=== PATIENT | female | born 1995 | race Caucasian/White ===

== ENCOUNTER 2018-05-06 19:55 | Observation (INO) | payer OTHER ==
[2018-05-06] MEDS ORDERED: NORMAL SALINE 1000 ML 1,000 ML IV ONE (20:06)
--- NOTE | 2018-05-06 20:10 | ER Document Report ---
ED Medical Screen (RME) - General Chief Complaint: Abdominal Pain Stated Complaint: ABDOMINAL PAIN Time Seen by Provider: 05/06/18 20:04 Notes: RAPID MEDICAL EVALUATION DISCLOSURE I have seen this patient as part of a Rapid Medical Evaluation and, if applicable, placed any initially appropriate orders. The patient will be seen and fully evaluated, including a full history and physical exam, by a provider ( in Main ED or Fast Track) when a room becomes available. 23-year-old female (states they all resulted in miscarriages within the first month) approximately 6 weeks gestation (per her report) here with complaints of right (greater than left) lower quadrant abdominal pain that started yesterday and has progressively worsened. She has had nausea but no vomiting diarrhea dysuria hematuria frequency vaginal bleeding/discharge. She has not taken anything for the symptoms. She has not yet had an ultrasound. No prior history of ovarian cysts. EXAM Moderately tachycardic, 120s (states she does not feel nervous or anxious, & that her HR is normally low) Mild diffuse TTP, right> left lower quadrant No peritoneal signs - Related Data Allergies/Adverse Reactions: No Known Allergies Allergy (Unverified 05/06/18 19:56) Past Medical History Renal/ Medical History: Denies: Hx Peritoneal Dialysis
[2018-05-06 20:27] LABS: ABSOLUTE EOSINOPHILS # (AUTO) 0.1 10^3/uL (0.0-0.6); ABSOLUTE LYMPHOCYTES (AUTO) 1.4 10^3/uL (0.5-4.7); ABSOLUTE MONOCYTES (AUTO) 0.7 10^3/uL (0.1-1.4); ABSOLUTE NEUT (AUTO) 5.8 10^3/uL (1.7-8.2); BASOPHILS % (AUTO) 0.2 % (0-2); EOSINOPHILS % (AUTO) 0.9 % (0-6); HEMATOCRIT 37.4 % (36.0-47.0); HEMOGLOBIN 13.2 g/dL (12.0-15.5); LYMPHOCYTES % (AUTO) 17.9 % (13-45); MEAN CORPUSCULAR HEMOGLOBIN 31.7 pg (27.0-33.4); MEAN CORPUSCULAR HGB CONC 35.3 g/dL (32.0-36.0); MEAN CORPUSCULAR VOLUME 90 fl (80-97); MONOCYTES % (AUTO) 8.3 % (3-13); PLATELET COUNT 302 10^3/uL (150-450); RED BLOOD COUNT 4.17 10^6/uL (3.72-5.28); RED CELL DISTRIBUTION WIDTH 12.9 % (11.5-14.0); SEGMENTED NEUTROPHILS % (AUTO) 72.7 % (42-78); TOTAL CELLS COUNTED % (AUTO) 100 %
[2018-05-06 20:41] LABS: ALANINE AMINOTRANSFERASE 18 U/L (9-52); ALBUMIN 4.8 g/dL (3.5-5.0); ALKALINE PHOSPHATASE 63 U/L (38-126); ANION GAP 15 (5-19); ASPARTATE AMINO TRANSFERASE 18 U/L (14-36); BILIRUBIN,DIRECT 0.3 mg/dL (0.0-0.4); BILIRUBIN,TOTAL 0.6 mg/dL (0.2-1.3); BLOOD UREA NITROGEN 13 mg/dL (7-20); CALCIUM 9.7 mg/dL (8.4-10.2); CARBON DIOXIDE 24 mmol/L (22-30); CHLORIDE 102 mmol/L (98-107); GLUCOSE 91 mg/dL (75-110); LIPASE 104.5 U/L (23-300); POTASSIUM 3.6 mmol/L (3.6-5.0); SODIUM 141.1 mmol/L (137-145); TOTAL PROTEIN 8.3 g/dL (6.3-8.2)
[2018-05-06 21:16] LABS: APPEARANCE,URINE SLIGHTLY-CLOUDY; BILIRUBIN,URINE NEGATIVE (NEGATIVE); COLOR,URINE YELLOW; GLUCOSE, URINE NEGATIVE (NEGATIVE); KETONES,URINE NEGATIVE (NEGATIVE); LEUKOCYTE ESTERASE,URINE TRACE (NEGATIVE); NITRITE,URINE NEGATIVE (NEGATIVE); PROTEIN,URINE NEGATIVE (NEGATIVE); URINE SPECIFIC GRAVITY 1.015
--- NOTE | 2018-05-06 22:02 | RADIOLOGY REPORT (SQ) ---
EXAM DESCRIPTION: U/S OB TRANSVAGINAL W/O DOP COMPLETED DATE/TIME: 05/06/2018 9:28 pm REASON FOR STUDY: RLQ pain, eval appendix ovarian cyst COMPARISON: None. TECHNIQUE: Transvaginal static and realtime grayscale images acquired of the pelvis. Additional zachery cted spectral and color Doppler images recorded. All images stored on PACs. bHC,000 CLINICAL DATES: 5 weeks 0 day LIMITATIONS: None. FINDINGS: No IUP identified. UTERUS: No masses. No anomalies. CERVICAL LENGTH: 2.2 cm Closed. RIGHT ADNEXA: Ovary not identified. No adnexal free fluid. LEFT ADNEXA: 4.2 x 3.6 x 2.9 cm complex cystic area in the left adnexa, minimal peripheral color flow on Doppler interrogation. FREE FLUID: None. OTHER: No other significant finding. IMPRESSION: 4.2 x 3.6 x 2.9 cm complex cystic area in the left adnexa, minimal peripheral color flow on Doppler interrogation. No IUP identified. Consider OB follow-up. Trimester of : First - 0 to 13 weeks. TECHNICAL DOCUMENTATION: JOB ID: [id number] [employer]- All Rights Reserved rev Reading location - IP/workstation name: [email or web address]
--- NOTE | 2018-05-06 22:33 | ER Document Report ---
ED General - General Chief Complaint: Abdominal Pain Stated Complaint: ABDOMINAL PAIN Time Seen by Provider: 05/06/18 20:04 Notes: Patient is a 23-year-old female at 6 weeks by LMP who presents with 2 days of bilateral adnexal tenderness worse towards the right which she states became much worse today. She describes it as a cramping, stabbing pain to her lower abdomen. Nothing improves or worsens this pain. She denies any associated vaginal bleeding, vaginal discharge, dysuria, fever or constitutional symptoms. She has never had an ectopic in the past. No history of PID, fertility treatment, smoking, or history of gonorrhea or chlamydia. She has not seen her general doctor regarding today's concerns. - Related Data Allergies/Adverse Reactions: No Known Allergies Allergy (Unverified 05/06/18 19:56) Past Medical History - General Information source: Patient - Social History Smoking Status: Never Smoker Frequency of alcohol use: None Drug Abuse: None Lives with: Spouse/Significant other Family History: Reviewed & Not Pertinent Patient has suicidal ideation: No Patient has homicidal ideation: No Renal/ Medical History: Denies: Hx Peritoneal Dialysis Review of Systems - Review of Systems Notes: Constitutional: Negative for fever. HENT: Negative for sore throat. Eyes: Negative for visual changes. Cardiovascular: Negative for chest pain. Respiratory: Negative for shortness of breath. Gastrointestinal: Positive for lower abdominal pain Genitourinary: Negative for dysuria. Musculoskeletal: Negative for back pain. Skin: Negative for rash. Neurological: Negative for headaches, weakness or numbness. 10 point ROS negative except as marked above and in HPI. Physical Exam - Vital signs Vitals: Temp Pulse Resp BP Pulse Ox 97.9 F 130 H 16 108/89 H 100 05/06/18 20:02 05/06/18 20:02 05/06/18 20:02 05/06/18 20:02 05/06/18 20:02 Interpretation: Tachycardic Notes: PHYSICAL EXAMINATION: GENERAL: Well-appearing, well-nourished and in no acute distress. HEAD: Atraumatic, normocephalic. EYES: Pupils equal round and reactive to light, extraocular movements intact, sclera anicteric, conjunctiva are normal. ENT: nares patent, oropharynx clear without exudates. Moist mucous membranes. NECK: Normal range of motion, supple without lymphadenopathy LUNGS: Breath sounds clear to auscultation bilaterally and equal. No wheezes rales or rhonchi. HEART: Regular rate and rhythm without murmurs ABDOMEN: Soft, bilateral adnexal and suprapubic tenderness more dominant towards the right adnexa, normoactive bowel sounds. No guarding, no rebound. No masses appreciated. EXTREMITIES: Normal range of motion, no pitting or edema. No cyanosis. NEUROLOGICAL: No focal neurological deficits. Moves all extremities spontaneously and on command. PSYCH: Moderately anxious SKIN: Warm, Dry, normal turgor, no rashes or lesions noted. Course - Re-evaluation Re-evalutation: 05/06/18 22:32 Patient presents with bilateral adnexal pain, worse toward the right than the left for the past 2 days much worse today. Initially the patient was tachycardic to 130 bpm which has improved with a heart rate of 97 on manual count. Her transvaginal ultrasound does show findings worrisome for possible left-sided adnexal although her pain is more toward the right. Quantitative beta-hCG is 3062 and I would anticipate an IUP at this time point. I have discussed with Dr. Magana the [employer] LOSS INSPECTOR semiconductor technician who will review the images and plans to then assess the patient. 05/07/[address] Magana has seen and assessed the patient, will take to the operating room for concerns of an ectopic - Vital Signs Vital signs: Temp Pulse Resp BP Pulse Ox 97.5 F 77 17 96/58 L 100 05/07/18 04:16 05/07/18 04:16 05/07/18 04:16 05/07/18 04:16 05/07/18 04:16 - Laboratory Result Diagrams: 05/06/18 20:17 05/06/18 20:17 Laboratory results interpreted by me: 05/06/18 05/06/18 20:17 20:19 Total Protein 8.3 H Beta HCG, Quant 3062.60 H Urine Urobilinogen 4.0 H Ur Leukocyte Esterase TRACE H - Diagnostic Test Radiology reviewed: Reports reviewed Discharge - Discharge Clinical Impression: Adnexal mass Ectopic Qualifiers: Location of ectopic : unspecified location Intrauterine status: without intrauterine Qualified Code(s): O00.90 - Unspecified ectopic without intrauterine Condition: Fair Disposition: ADMITTED OBSERVATION Admitting Provider: [facility] Admitted: OR
--- NOTE | 2018-05-06 22:40 | PDOC H&P ---
History of Present Illness Admission Date/PCP: SUNNY CESAR MD Patient complains of: RLQ pain, denies VB History of Present Illness: NICOLE HERNANDEZ is a 23 year old female at 5+0ega by LMP with somewhat regular menses presents with 2 day hisotry of worsening abdominal pain. Pt reports pain is all across lower abd and intermittently worsens on the left then the right (goes back and forth). Last po intake was 1330. She denies emesis. She knew she was . Denies h/o GC/CHlam. Denies smoking. Past Medical History LMP: 04/01/2018 Menses: regular Gynecological Infection: No Obstetrical History: none - (all SABs, reports never had documented IUP with pregnancies) Past Surgical History Past Surgical History: Reports: Other - [place] teeth Social History Information Source: Patient Lives with: Family Smoking Status: Never Smoker Frequency of Alcohol Use: None Hx Recreational Drug Use: No Drugs: None Hx Prescription Drug Abuse: No Family History Family History: None Parental Family History Reviewed: No Children Family History Reviewed: NA Sibling(s) Family History Reviewed.: NA Medication/Allergy Allergies/Adverse Reactions: No Known Allergies Allergy (Unverified 05/06/18 19:56) Review of Systems Constitutional: ABSENT: chills, fever(s), headache(s), weight gain, weight loss Gastrointestinal: PRESENT: abdominal pain, bloating. ABSENT: nausea, vomiting Neurological: ABSENT: abnormal gait, abnormal speech, confusion, dizziness, focal weakness, syncope Psychiatric: PRESENT: other - upset regarding dx. ABSENT: anxiety, depression, homidical ideation, suicidal ideation Physical Exam - Physical Exam Vital Signs: Temp Pulse Resp BP Pulse Ox 97.9 F 130 H 16 108/89 H 100 05/06/18 20:02 05/06/18 20:02 05/06/18 20:02 05/06/18 20:02 05/06/18 20:02 Intake & Output 05/05/18 05/06/18 05/07/18 06:59 06:59 06:59 Weight 70.8 kg General appearance: PRESENT: no acute distress, well-developed, well-nourished Head exam: PRESENT: atraumatic, normocephalic Respiratory exam: PRESENT: clear to auscultation gil, symmetrical. ABSENT: retraction, tachypnea Cardiovascular exam: PRESENT: RRR. ABSENT: diastolic murmur, rubs, systolic murmur GI/Abdominal exam: PRESENT: guarding, normal bowel sounds, rebound - rebound and guarding. rebound worse on left side even though pt reports pain is on right, soft, tenderness. ABSENT: distended, mass, organolmegaly Rectal exam: PRESENT: deferred Extremities exam: PRESENT: full ROM. ABSENT: calf tenderness, clubbing, pedal edema Musculoskeletal exam: PRESENT: ambulatory Neurological exam: PRESENT: alert, awake, oriented to person, oriented to place , oriented to time, oriented to situation, CN II-XII grossly intact. ABSENT: motor sensory deficit Psychiatric exam: PRESENT: appropriate affect, normal mood. ABSENT: homicidal ideation, suicidal ideation Skin exam: PRESENT: dry, intact, warm. ABSENT: cyanosis, rash Result Laboratory Results: 05/06/18 20:17 05/06/18 20:17 05/06/18 05/06/18 05/06/18 20:17 20:17 20:19 WBC 8.0 RBC 4.17 Hgb 13.2 Hct 37.4 MCV 90 MCH 31.7 MCHC 35.3 RDW 12.9 Plt Count 302 Seg Neutrophils % 72.7 Lymphocytes % 17.9 Monocytes % 8.3 Eosinophils % 0.9 Basophils % 0.2 Absolute Neutrophils 5.8 Absolute Lymphocytes 1.4 Absolute Monocytes 0.7 Absolute Eosinophils 0.1 Absolute Basophils 0.0 Sodium 141.1 Potassium 3.6 Chloride 102 Carbon Dioxide 24 Anion Gap 15 BUN 13 Creatinine 0.81 Est GFR ( Amer) > 60 Est GFR (Non-Af Amer) > 60 Glucose 91 Calcium 9.7 Total Bilirubin 0.6 AST 18 ALT 18 Alkaline Phosphatase 63 Total Protein 8.3 H Albumin 4.8 Lipase 104.5 Urine Color YELLOW Urine Appearance SLIGHTLY-CLOUDY Urine pH 7.0 Ur Specific [place] 1.015 Urine Protein NEGATIVE Urine Glucose (UA) NEGATIVE Urine Ketones NEGATIVE Urine Blood NEGATIVE Urine Nitrite NEGATIVE Ur Leukocyte Esterase TRACE H Urine WBC (Auto) 7 Urine RBC (Auto) 1 Impressions: Obstetrics Ultrasound 05/06/18 20:06 IMPRESSION: 4.2 x 3.6 x 2.9 cm complex cystic area in the left adnexa, minimal peripheral color flow on Doppler interrogation. No IUP identified. Consider OB follow-up. Trimester of : First - 0 to 13 weeks. Status: Image reviewed by me - imported from PACS and reviewed by myself as well Assessment & Plan - Diagnosis (1) Adnexal mass Is this a current diagnosis for this admission?: Yes Plan: Significant COncern for Ectopic based off labs, exam and imaging. Reviewed poss hydrosalpinx vs ectopic and that if hydrosalpinx or damaged tube needs removal. Pt is aware that this would leave her with only one tube. Pt aware that if mass is attached to ovary may need ovary removal if unable to maintain hemostasis. (2) Ectopic Qualifiers: Location of ectopic : unspecified location Is this a current diagnosis for this admission?: Yes Plan: Reviewed with pt imaging and labs and exam findings (complex left adnexal mass 4cm x 3.6cm x 2.9cm). [facility] [place] with no IUP identified with complex adnexal mass and significant abdominal pain. Reviewed with patient significant concern for ectopic with rebound and guarding and need for surgical intervention. Reviewed other options: Expectant management in hospital, Methotrexate, Surgery. Reviewed if early IUP that is not showing up on US or if heterotopic that surgery may interrupt intrauterine if present. Reviewed with pt that if MTX that may still need surgery for tubal rupture. Reviewed possible need for emergent surgery if ectopic ruptures while undergoing expectant management. The risks/benefits/alternatives were reviewed and patient desires to proceed with Operative L/S with removal of suspected ectopic and may need removal of tube even if appears hydrosalpinx. She understands the risks and all questions were answered. GC/Chlam ordered. - Time Time Spent with patient: 30 minutes Time Spent: 30 to 50 Minutes Critical Time spent with patient: Less than 15 minutes Medications reviewed and adjusted accordingly: Yes Anticipated discharge: Home Within: within 24 hours - Inpatient Certification Based on my medical assessment, after consideration of the patient's comorbidities, presenting symptoms, or acuity I expect that the services needed warrant INPATIENT care.: Yes I certify that my determination is in accordance with my understanding of Medicare's requirements for reasonable and necessary INPATIENT services [42 CFR 412.3e].: Yes Medical Necessity: Need for Pain Control, Need for Surgery Post Hospital Care: D/C [employer] Documentation - Plan Summary Plan Summary: TO operating room. Anticipate discharge tomorrow.
[2018-05-06] MEDS ORDERED: BUPIVACAINE HCL 0.25 % INJ/PF (2.5 MG/1 ML) 30 ML VIAL ONE (23:52)
[2018-05-07] MEDS ORDERED: PROPOFOL INJ 200 MG/20 ML VIAL IV ONE (00:17)
[2018-05-07] MEDS ORDERED: MIDAZOLAM 2 MG/2 ML INJ ONE (00:17)
[2018-05-07] MEDS ORDERED: ONDANSETRON HCL INJ/PF 4 MG/2 ML SDV ONE (00:17)
[2018-05-07] MEDS ORDERED: FENTANYL CITRATE INJ/PF 100 MCG/2 ML AMPUL ONE (00:17)
[2018-05-07] MEDS ORDERED: ACETAMINOPHEN 1,000 MG/100 ML RTUPB IV ONE (00:17)
[2018-05-07] MEDS ORDERED: DEXAMETHASONE SOD PHOSPHATE INJ 4 MG/1 ML VIAL ONE (00:17)
[2018-05-07] MEDS ORDERED: MORPHINE SULFATE 10 MG/ML INJ ONE (00:18)
[2018-05-07 00:23] LABS: CHLAM PCR NOT DETECTED (NOT DETECT); GON PCR NOT DETECTED (NOT DETECT)
[2018-05-07] MEDS ORDERED: MORPHINE SULFATE 10 MG/ML INJ IV PRN (01:12)
[2018-05-07] MEDS ORDERED: OXYCODONE-ACETAMINOPHEN 5-325 MG TABLET PO PRN ×4 (01:12→01:29)
[2018-05-07] MEDS ORDERED: MEPERIDINE HCL/PF INJ 25 MG/1 ML DISP.SYRIN IV PRN (01:12)
[2018-05-07] MEDS ORDERED: DIPHENHYDRAMINE HCL 50 MG/ML VIAL IV PRN (01:12)
[2018-05-07] MEDS ORDERED: FENTANYL CITRATE INJ/PF 100 MCG/2 ML AMPUL IV PRN ×3 (01:12)
[2018-05-07] MEDS ORDERED: PROMETHAZINE HCL INJ 25 MG/1 ML VIAL IV PRN ×3 (01:12→01:28)
[2018-05-07] MEDS ORDERED: DEXTROSE 5%-LACTATED RINGERS 1,000 ML IV PRN (01:28)
[2018-05-07] MEDS ORDERED: HYDROMORPHONE HCL INJ/PF 2 MG/ML AMPULE IM PRN (01:28)
[2018-05-07] MEDS ORDERED: NORMAL SALINE 1000 ML 1,000 ML IV PRN (01:28)
--- NOTE | 2018-05-07 01:41 | Brief Operative Note ---
BRIEF OPERATIVE REPORT DATE OF SURGERY: 05/07/18 TIME OF SURGERY: 01:10 PREOPERATIVE DIAGNOSIS: Adnexal Mass, Early possible ectopic POSTOPERATIVE DIAGNOSIS: Left complex cyst, no e/o ectopic SURGEON: ANGELIQUE HER FINDINGS: cystic structure on left ovary but overall simple in appearance ( appears to be 2 simple cysts combined). normal appearing uterus, normal bilateral tubes, normal right ovary. IVF 700ml, UOP 150ml COMPLICATIONS: none ESTIMATED BLOOD LOSS: less than 5 ml TISSUE REMOVED OR ALTERED: None TECHNICAL PROCEDURE: Diagnostic Laparoscopy
--- NOTE | 2018-05-07 01:50 | Operative Report ---
Operative Report DATE OF SURGERY: 05/07/18 PREOPERATIVE DIAGNOSIS: Adnexal Mass, Early possible ectopic POSTOPERATIVE DIAGNOSIS: Left complex cyst, no e/o ectopic OPERATION: Diagnostic Laparoscopy SURGEON: ANGELIQUE HER ANESTHESIA: GA TISSUE REMOVED OR ALTERED: None COMPLICATIONS: None ESTIMATED BLOOD LOSS: less than 5 ml INTRAOPERATIVE FINDINGS: cystic structure on left ovary but overall simple in appearance (appears to be 2 simple cysts combined). normal appearing uterus, normal bilateral tubes (normal caliber, no evidence of blunting of fimbriae), normal right ovary. Ovarian cyst was left intact since unable to identify CL cyst. was informed of this postoperatively. IVF 700ml, UOP 150ml PROCEDURE: Anesthesiologist: Raheem Frederick MD, Mode Gracia CRNA IV fluids: [700ml] Urine output: [150ml] Indications: [23yo at 5+0ega presents with 2 day history of worsening abdominal pain diffuse lower abdomen. On exam she has guarding and rebound. BHCG was 3,062 and US revealed complex left adnexal mass. Reviewed options with patient and partner and concern for ectopic based on presentation. Reviewed with patient and that could have IUP that may not be able to visualize yet. However, at current BHCG should be able to see something in the uterus. Reviewed options: expectant, MTX, surgery. The risks/ benefits/alternatives were reviewed and she desires to proceed with Laparoscopy. She is aware that of surgical risks if there is an intrauterine that has not been identified yet. ] Procedure: The patient was taken to the operating room where general anesthesia was obtained without difficulty. She was then placed in dorsal supine lithotomy position and prepped and draped in the normal sterile fashion. A sponge stick was placed into the vagina for uterine manipulation. Attention was then turned to the patient's abdomen where a 5 mm infraumbilical skin incision was then made. The Optiview trocar with 0 laparoscope was then advanced without difficulty under direct visualization with the Optiview trocar. This was performed while tenting the abdominal wall and these will fashion. Intraperitoneal placement was confirmed by the direct visualization. Pneumoperitoneum was then obtained with approximately 4 L carbon dioxide gas. Survey of the patient's abdomen and pelvis revealed findings as noted above. A second skin incision was then made approximately 3 cm superior 4 cm medial to the anterior superior iliac spine on the left. This incision was made under direct visualization with the laparoscope. The trochar was then advanced under direct visualization of the laparoscope. Pelvis and abdomen was then thoroughly inspected and no evidence of ectopic but noted multicystic structure in Left ovary (cysts appeared simple). The additional trochar on the patient's left were than removed under direct visualization. The 5 mm trocar was then removed after abdominal insufflation was removed. The skin at all trocar sites were closed with 3-0 Monocryl in a subcuticular fashion with overlying Dermabond. No antibiotics were indicated for this procedure. After completion of skin closure of the trocar sites attention was then turned to the vagina where the sponge stick uterine manipulator was removed. Sponge lap needle and instrument counts were correct 3. The patient tolerated the procedure well and was taken to the recovery area awake and in stable condition.
[2018-05-07 06:36] LABS: HEMATOCRIT 34.3 % (36.0-47.0); HEMOGLOBIN 12.1 g/dL (12.0-15.5); MEAN CORPUSCULAR HEMOGLOBIN 31.4 pg (27.0-33.4); MEAN CORPUSCULAR HGB CONC 35.3 g/dL (32.0-36.0); MEAN CORPUSCULAR VOLUME 89 fl (80-97); PLATELET COUNT 253 10^3/uL (150-450); RED BLOOD COUNT 3.85 10^6/uL (3.72-5.28); RED CELL DISTRIBUTION WIDTH 12.9 % (11.5-14.0); WHITE BLOOD COUNT 6.6 10^3/uL (4.0-10.5)
[2018-05-07] MEDS ORDERED: DOCUSATE SODIUM 100 MG CAPSULE PO SCH (10:00)
[2018-05-07] MEDS ORDERED: SUCCINYLCHOLINE CHLORIDE INJ 200 MG/10 ML VIAL ONE (11:00)
--- NOTE | 2018-05-07 11:00 | DISCHARGE SUMMARY E ---
Discharge Summary NAME: NICOLE HERNANDEZ : 1995 AGE: 23Y ADMITTED: 05/07/2018 DISCHARGED: 05/07/2018 ADMISSION DIAGNOSIS: Adnexal mass with beta hCG of 3000 with no intrauterine , suspicious for ectopic. DISCHARGE DIAGNOSIS: Left ovarian ectopic . HOSPITAL COURSE: The patient was seen and evaluated in the Emergency Room. She is a 4, para 0-0-3-0, at unknown gestational age, with a history of recurrent loss, so has had a beta hCG of 3000 in the Emergency Room and abdominal pain on her right side. With ultrasound imaging findings that are suspicious for adnexal ectopic . The patient was taken to the operating room by Dr. Her who the previous findings. Please see her dictated operative report. No intervention was done at that time although. Other than visualizing the left ovarian follicular/adnexal mass or cysts, but could be having ectopic. Prior to taking her to the OR, desire that Dr. Her does not intervene on her ovary or fallopian tubes because she wants to retain her ovaries and she just wanted to make sure there was nothing from an urgent intervention that is needed. So the patient was taken for a diagnostic laparoscopy. The ovaries remained in place. Both fallopian tubes appeared to be normal. This was compared to the report of Dr. Her. It was a pristine abdomen. No bleeding in the abdomen. The patient came back to the recovery room and was evaluated in the morning with a repeat beta hCG that dropped from 3000 to 2800 consistent with a left ovarian ectopic . The patient still desired to not have intervention surgically with removal of the ovary or cystectomy of the ovary. The patient desires to have medical intervention with methotrexate. She was counseled extensively to present to the emergency room immediately if she has an acute onset of abdominal pain that is excruciatingly painful, unresponsive to the narcotics. The patient was prohibited from lifting more than 5-10 pounds and instrumented not to do any strenuous activity. The patient will be given methotrexate 93 IM 93 mg x1 prior to discharge with appropriate follow up on day 4 and day 7 at the office with Dr. Her. Dr. Her does a two dose regimen, so she will get another methotrexate IM on day 4 with a repeat beta hCG at that time and hoping for a 15% drop between day 4 and day 7 in the beta hCG levels. The patient understood completely that this medication is a chemotherapeutic regimen and she needs to have close follow up and close intervention, and she was also instrumented not to take any vitamins, precautions, acute onset of abdominal pain, heavy vaginal bleeding. Patient and in the room were both counseled extensively on when to present to the emergency room. The patient is currently hemodynamically stable for discharge. Vital signs are normotensive, not tachycardic, afebrile. Abdomen is soft, not an acute abdomen. The patient will be discharged with Dr. Her. Dr. Her was in the patient's room with me about discussion of discharging with methotrexate being given today and with appropriate follow up of day 4 and day 7. DICTATING PHYSICIAN: Gisela Santana MD [id number] PHY#: [id number] ID: [id number] JOB#: [id number] ACCT: [id number] cc:ANGELIQUE HRE M.D. Gisela Santana >
[2018-05-07] MEDS ORDERED: METHOTREXATE SODIUM INJ/PF 50 MG/2 ML IM PRN (12:03)
[2018-05-07 13:57] VITALS: BP 98/53
== END 2018-05-07 14:30 | disposition home or self-care (01) ==
LOC: ER 19:55 → EH 05-07 00:01 → 2N 05-07 02:07
PROVIDERS: ADMIT Student in an Organized Health Care Education/Training Program; ATTEND Student in an Organized Health Care Education/Training Program
PROC: 0WJJ4ZZ Inspection of Pelvic Cavity, Percutaneous Endoscopic Approach (ICD-10-PCS; principal; 2018-05-06)
DX: N83.292 Other ovarian cyst, left side (principal); O00.202 Left ovarian pregnancy without intrauterine pregnancy
CPT/HCPCS: 49320; 99285; 96360; 86900; 86901; 36415; 86850; 84702; 83690; 85025; 85027; 80053; 81001; 87491; 87591; 76817; G0378; J2250; J1100; J3010; J9260; J2270; J2550; J0330; J2405; J7030; J2704; J0131; 840

== ENCOUNTER 2018-05-09 13:39 | Emergency (ER) | payer OTHER ==
--- NOTE | 2018-05-09 14:09 | ER Document Report ---
ED Medical Screen (RME) - General Chief Complaint: Abdominal Pain Stated Complaint: LOW LEFT ABDOMINAL PAIN Time Seen by Provider: 05/09/18 14:03 Notes: RAPID MEDICAL EVALUATION DISCLOSURE I have seen this patient as part of a Rapid Medical Evaluation and, if applicable, placed any initially appropriate orders. The patient will be seen and fully evaluated, including a full history and physical exam, by a provider ( in Main ED or Fast Track) when a room becomes available. 23-year-old female recently diagnosed with ectopic here with complaints of left lower and suprapubic abdominal pain that started up this morning. She was taken to the OR this past Wednesday night however the patient reports that they found the ectopic was inside of the ovary instead of on the outside so she was given a dose of methotrexate instead. She has had some pain that is relieved with the oxycodone she has been prescribed however today the pain immensely intensified (with associated nausea) and this prompted her to come in to be evaluated. EXAM Exquisite left lower quadrant and suprapubic TTP No peritoneal signs TRAVEL OUTSIDE OF THE [place] IN LAST 30 DAYS: No - Related Data Allergies/Adverse Reactions: No Known Allergies Allergy (Verified 05/09/18 13:41) Past Medical History - Past Medical History Cardiac Medical History: Denies: Hx Congestive Heart Failure, Hx Heart Attack, Hx Hypertension Pulmonary Medical History: Denies: Hx Asthma, Hx Bronchitis, Hx COPD, Hx Pneumonia, Hx Tuberculosis Neurological Medical History: Denies: Hx Seizures Renal/ Medical History: Denies: Hx End Stage Renal Disease, Hx Kidney Stones, Hx Peritoneal Dialysis GI Medical History: Denies: Hx Cirrhosis, Hx Gastroesophageal Reflux Disease, Hx Ulcer Musculoskeltal Medical History: Denies Hx Arthritis, Denies Hx Multiple Sclerosis Psychiatric Medical History: Denies: Hx Bipolar Disorder, Hx Depression, Hx Schizophrenia Past Surgical History: Reports: Other - [place] teeth - Immunizations History of Influenza Vaccine for 08/2017 - 12/2017 Season: Yes Influenza Administration Date for 08/2017 - 12/2017 Season: 10/01/17 Physical Exam - Vital signs Vitals: Temp Pulse Resp BP Pulse Ox 98.9 F 102 H 16 116/59 L 98 05/09/18 13:56 05/09/18 13:56 05/09/18 13:56 05/09/18 13:56 05/09/18 13:56 Course - Vital Signs Vital signs: Temp Pulse Resp BP Pulse Ox 98.9 F 102 H 16 116/59 L 98 05/09/18 13:56 05/09/18 13:56 05/09/18 13:56 05/09/18 13:56 05/09/18 13:56 Doctor's Discharge - Discharge Referrals: SUNNY CESAR MD [Primary Care Provider] - Follow up as needed
[2018-05-09] MEDS ORDERED: OXYCODONE HCL IR 5 MG TABLET PO ONE (14:11)
[2018-05-09 14:35] LABS: ABSOLUTE EOSINOPHILS # (AUTO) 0.1 10^3/uL (0.0-0.6); ABSOLUTE LYMPHOCYTES (AUTO) 1.9 10^3/uL (0.5-4.7); ABSOLUTE MONOCYTES (AUTO) 0.3 10^3/uL (0.1-1.4); ABSOLUTE NEUT (AUTO) 4.7 10^3/uL (1.7-8.2); BASOPHILS % (AUTO) 0.3 % (0-2); EOSINOPHILS % (AUTO) 0.9 % (0-6); HEMATOCRIT 38.1 % (36.0-47.0); HEMOGLOBIN 13.2 g/dL (12.0-15.5); LYMPHOCYTES % (AUTO) 27.1 % (13-45); MEAN CORPUSCULAR HGB CONC 34.6 g/dL (32.0-36.0); MEAN CORPUSCULAR VOLUME 90 fl (80-97); MONOCYTES % (AUTO) 3.9 % (3-13); PLATELET COUNT 332 10^3/uL (150-450); RED BLOOD COUNT 4.25 10^6/uL (3.72-5.28); RED CELL DISTRIBUTION WIDTH 12.4 % (11.5-14.0); SEGMENTED NEUTROPHILS % (AUTO) 67.8 % (42-78); TOTAL CELLS COUNTED % (AUTO) 100 %
--- NOTE | 2018-05-09 15:45 | RADIOLOGY REPORT (SQ) ---
EXAM DESCRIPTION: U/S OB TRANSVAGINAL W/O DOP COMPLETED DATE/TIME: 05/09/2018 3:30 pm REASON FOR STUDY: ectopic, now severe LLQ pain; eval ectopic rupture COMPARISON: 05/06/2018 TECHNIQUE: Transvaginal static and realtime grayscale images acquired of the pelvis. Additional zachery cted spectral and color Doppler images recorded. All images stored [facility] PACs. [facility]. CLINICAL DATES: LMP 04/01/2018. 5 weeks 3 days. LIMITATIONS: None. FINDINGS: A small gestational sac is present within the endometrial canal. There is a yolk sac pres ent. The size of the gestational sac suggested gestation of 5 weeks 4 days. No pole is seen. No heart motion is present. UTERUS: No masses or anomalies. 8 x 6 x 4.9 cm. CERVICAL LENGTH: 2.5 cm. Closed. RIGHT ADNEXA: Ovary not seen. No adnexal free fluid. No adnexal masses. LEFT ADNEXA: 4.8 x 3.6 x 4.8 cm. 2 cystic areas are present. 1 measures 3.5 x 2.2 x 2.7 cm. The ot her measures 2.8 x 2.1 x 2.1 cm. No adnexal free fluid. No adnexal masses. FREE FLUID: None. OTHER: No other significant finding. IMPRESSION: There appears to be an early gestational sac of 5 weeks 4 days. Appear to be 2 cysts as sociated with the left ovary. Follow-up as clinically indicated. Trimester of : First - 0 to 13 weeks. TECHNICAL DOCUMENTATION: JOB ID: [id number] [employer]- All Rights Reserved rev-03/18 Reading location - IP/workstation name: [email or web address]
[2018-05-09] MEDS ORDERED: NORMAL SALINE 1000 ML 1,000 ML IV ONE (15:52)
[2018-05-09] MEDS ORDERED: KETOROLAC TROMETHAMINE INJ/PF 30 MG/1 ML SDV IV ONE (15:52)
[2018-05-09] MEDS ORDERED: NORMAL SALINE 1000 ML 1,000 ML IV PRN (15:52)
[2018-05-09] MEDS ORDERED: ONDANSETRON HCL INJ/PF 4 MG/2 ML SDV IV ONE (15:52)
[2018-05-09 15:55] LABS: ALANINE AMINOTRANSFERASE 19 U/L (9-52); ALBUMIN 4.4 g/dL (3.5-5.0); ALKALINE PHOSPHATASE 56 U/L (38-126); ANION GAP 15 (5-19); ASPARTATE AMINO TRANSFERASE 22 U/L (14-36); BILIRUBIN,DIRECT 0.3 mg/dL (0.0-0.4); BILIRUBIN,TOTAL 0.6 mg/dL (0.2-1.3); BLOOD UREA NITROGEN 12 mg/dL (7-20); CALCIUM 9.9 mg/dL (8.4-10.2); CARBON DIOXIDE 24 mmol/L (22-30); CHLORIDE 101 mmol/L (98-107); GLUCOSE 87 mg/dL (75-110); POTASSIUM 3.8 mmol/L (3.6-5.0); TOTAL PROTEIN 7.9 g/dL (6.3-8.2)
--- NOTE | 2018-05-09 15:56 | ER Document Report ---
ED GI/ - General Chief Complaint: Abdominal Pain Stated Complaint: LOW LEFT ABDOMINAL PAIN Time Seen by Provider: 05/09/18 14:03 Mode of Arrival: Ambulatory Information source: Patient Notes: Chief complaint: Pelvic pain History of complain:( obtained from----patient) 23 years old female who had ectopic a few days ago, had laparoscopic surgery as well as methotrexate treatment was given. She presents today with lower pelvic pain sharp in nature each time she moves is increased in intensity. Associated with nausea no vomiting. Denies any dysuria frequency urgency. Denies any vaginal discharge. Denies any fever chills or other constitutional symptoms Onset: As above Duration: Last 2 days Severity: Moderate to severe Quality: Sharp Context: Post surgery Exacerbating factor and relieving factors: As above REVIEW OF SYSTEMS: CONSTITUTIONAL : Denies fever, chills, or sweats. Denies recent illness. EENT: Denies eye, ear, throat, or mouth pain or symptoms. Denies nasal or sinus congestion or discharge. Denies throat, tongue, or mouth swelling or difficulty swallowing. CARDIOVASCULAR: Denies chest pain. Denies palpitations or racing or irregular heart beat. Denies ankle edema. RESPIRATORY: Denies cough, cold, or chest congestion. Denies shortness of breath, difficulty breathing, or wheezing. GASTROINTESTINAL: Denies distention. Denies nausea, vomiting, or diarrhea. Denies blood in vomitus, stools, or per rectum. Denies black, tarry stools. Denies constipation. GENITOURINARY: Denies difficulty urinating, painful urination, burning, frequency, blood in urine, or discharge. FEMALE GENITOURINARY: Denies vaginal bleeding, heavy or abnormal periods, irregular periods. Denies vaginal discharge or odor. MUSCULOSKELETAL: Denies back or neck pain or stiffness. Denies joint pain or swelling. SKIN: Denies rash, lesions or sores. HEMATOLOGIC : Denies easy bruising or bleeding. LYMPHATIC: Denies swollen, enlarged glands. NEUROLOGICAL: Denies confusion or altered mental status. Denies passing out or loss of consciousness. Denies dizziness or lightheadedness. Denies headache. Denies weakness or paralysis or loss of use of either side. Denies problems with gait or speech. Denies sensory loss, numbness, or tingling. Denies seizures. PSYCHIATRIC: Denies anxiety or stress. Denies depression, suicidal ideation, or homicidal ideation. ALL OTHER SYSTEMS REVIEWED AND NEGATIVE. PHYSICAL EXAMINATION: GENERAL: Well-appearing, well-nourished and in moderate acute distress. HEAD: Atraumatic, normocephalic. EYES: Pupils equal round and reactive to light, extraocular movements intact, conjunctiva are normal. ENT: Nares patent, oropharynx clear without exudates. Moist mucous membranes. NECK: Normal range of motion, supple without lymphadenopathy LUNGS: Breath sounds clear to auscultation bilaterally and equal. No wheezes rales or rhonchi. HEART: Regular rate and rhythm without murmurs ABDOMEN: Soft, postsurgical abdomen with tenderness diffusely over the lower abdomen. With laparoscopic scars appears normal.. No guarding, no rebound. No masses appreciated. Examination of genitals-deferred Musculoskeletal: Normal range of motion, no pitting or edema. No cyanosis. NEUROLOGICAL: Cranial nerves grossly intact. Normal speech, normal gait. Normal sensory, motor exams PSYCH: Normal mood, normal affect. SKIN: Warm, Dry, normal turgor, no rashes or lesions noted. Dictation was performed using [employer] voice recognition software TRAVEL OUTSIDE OF THE [place] IN LAST 30 DAYS: No - Related Data Allergies/Adverse Reactions: No Known Allergies Allergy (Verified 05/09/18 14:11) Past Medical History - Social History Smoking Status: Never Smoker Chew tobacco use (# tins/day): No Frequency of alcohol use: None Drug Abuse: None Family History: Reviewed & Not Pertinent Patient has suicidal ideation: No Patient has homicidal ideation: No - Past Medical History Cardiac Medical History: Denies: Hx Congestive Heart Failure, Hx Heart Attack, Hx Hypertension Pulmonary Medical History: Denies: Hx Asthma, Hx Bronchitis, Hx COPD, Hx Pneumonia, Hx Tuberculosis Neurological Medical History: Denies: Hx Seizures Renal/ Medical History: Denies: Hx End Stage Renal Disease, Hx Kidney Stones, Hx Peritoneal Dialysis GI Medical History: Denies: Hx Cirrhosis, Hx Gastroesophageal Reflux Disease, Hx Ulcer Musculoskeltal Medical History: Denies Hx Arthritis, Denies Hx Multiple Sclerosis Psychiatric Medical History: Denies: Hx Bipolar Disorder, Hx Depression, Hx Schizophrenia Past Surgical History: Reports: Other - [place] teeth Physical Exam - Vital signs Vitals: Temp Pulse Resp BP Pulse Ox 98.9 F 102 H 16 116/59 L 98 05/09/18 13:56 05/09/18 13:56 05/09/18 13:56 05/09/18 13:56 05/09/18 13:56 Course - Vital Signs Vital signs: Temp Pulse Resp BP Pulse Ox 98.9 F 102 H 16 116/59 L 98 05/09/18 13:56 05/09/18 13:56 05/09/18 13:56 05/09/18 13:56 05/09/18 13:56 - Laboratory Result Diagrams: 05/09/18 14:20 05/09/18 15:10 Laboratory results interpreted by me: 05/09/18 05/09/18 14:45 15:10 Beta HCG, Quant 6809.40 H Urine Nitrite POSITIVE H Urine Urobilinogen 4.0 H Ur Leukocyte Esterase LARGE H - Diagnostic Test Radiology reviewed: Reports reviewed - Ultrasound of the pelvis was reported by radiologist as gestational sac of 5 weeks duration. No pole Discharge - Discharge Clinical Impression: Ectopic without intrauterine Qualifiers: Location of ectopic : tubal Laterality: right Qualified Code(s): O00.101 - Right tubal without intrauterine UTI (urinary tract infection) Qualifiers: Urinary tract infection type: acute cystitis Hematuria presence: without hematuria Qualified Code(s): N30.00 - Acute cystitis without hematuria Condition: Good Instructions: Urinary Tract Infection ([facility]), Ectopic (Stable) ([facility]) Prescriptions: Nitrofurantoin Monohyd/M-Cryst [Nitrofurantoin Holmes-Mcr 100 mg] 100 mg PO QID # 30 capsule Ondansetron [Zofran Odt 4 mg Tablet] 1 - 2 tab PO Q4H PRN #15 tab.rapdis PRN Reason: For Nausea/Vomiting Referrals: SUNNY CESAR MD [Primary Care Provider] - Follow up as needed
[2018-05-09 16:11] LABS: APPEARANCE,URINE CLOUDY; BILIRUBIN,URINE NEGATIVE (NEGATIVE); COLOR,URINE YELLOW; GLUCOSE, URINE NEGATIVE (NEGATIVE); KETONES,URINE NEGATIVE (NEGATIVE); LEUKOCYTE ESTERASE,URINE LARGE (NEGATIVE); NITRITE,URINE POSITIVE (NEGATIVE); PROTEIN,URINE NEGATIVE (NEGATIVE); URINE SPECIFIC GRAVITY 1.018
[2018-05-09] MEDS ORDERED: ONDANSETRON 4 MG TAB.RAPDIS ONE (17:00)
[2018-05-09 18:18] VITALS: BP 95/50
== END 2018-05-09 18:21 | disposition home or self-care (01) ==
LOC: ER 13:39
DX: O00.101 Right tubal pregnancy without intrauterine pregnancy (principal); N30.00 Acute cystitis without hematuria; R10.32 Left lower quadrant pain; R10.2 Pelvic and perineal pain; R11.0 Nausea
CPT/HCPCS: 99284; 96361; 96374; 36415; 84702; 85025; 80053; 81001; 76817; S0119; J1885; J7030

== ENCOUNTER 2018-05-20 09:57 | Day surgery (SDC) | payer OTHER ==
[~2018-05-20 09:57] MED LIST: FENTANYL CITRATE INJ/PF 100 MCG/2 ML AMPUL ONE; LIDOCAINE 1%/EPINEPHRINE INJ 20 ML VIAL ONE; METHYLENE BLUE 50 MG/10 ML AMPULE ONE; MIDAZOLAM 2 MG/2 ML INJ ONE; PROPOFOL INJ 200 MG/20 ML VIAL IV ONE
[2018-05-20] MEDS ORDERED: METHYLERGONOVINE MALEATE INJ/PF 0.2 MG/1 ML AMPULE ONE (10:09)
[2018-05-20] MEDS ORDERED: DOXYCYCLINE HYCLATE 100 MG in DEXTROSE 5%-WATER 250 ML IV PRN (10:31)
[2018-05-20 10:52] LABS: HEMATOCRIT 37.9 % (36.0-47.0); MEAN CORPUSCULAR HEMOGLOBIN 30.9 pg (27.0-33.4); MEAN CORPUSCULAR HGB CONC 34.5 g/dL (32.0-36.0); MEAN CORPUSCULAR VOLUME 90 fl (80-97); PLATELET COUNT 321 10^3/uL (150-450); RED BLOOD COUNT 4.22 10^6/uL (3.72-5.28); RED CELL DISTRIBUTION WIDTH 12.6 % (11.5-14.0); WHITE BLOOD COUNT 4.5 10^3/uL (4.0-10.5)
[2018-05-20] MEDS ORDERED: ACETAMINOPHEN 0 MG/0 ML RTUPB IV ONE (11:01)
[2018-05-20] MEDS ORDERED: MEPERIDINE HCL/PF INJ 25 MG/1 ML DISP.SYRIN IV PRN (12:32)
[2018-05-20] MEDS ORDERED: DIPHENHYDRAMINE HCL 50 MG/ML VIAL IV PRN (12:32)
[2018-05-20] MEDS ORDERED: FENTANYL CITRATE INJ/PF 100 MCG/2 ML AMPUL IV PRN ×3 (12:32)
[2018-05-20] MEDS ORDERED: ONDANSETRON HCL INJ/PF 4 MG/2 ML SDV IV PRN ×2 (12:32→12:44)
[2018-05-20] MEDS ORDERED: PROMETHAZINE HCL INJ 25 MG/1 ML VIAL IV PRN ×2 (12:32)
[2018-05-20] MEDS ORDERED: OXYCODONE-ACETAMINOPHEN 5-325 MG TABLET PO PRN ×4 (12:32→12:44)
[2018-05-20] MEDS ORDERED: HYDROMORPHONE HCL INJ/PF 2 MG/ML AMPULE IV PRN (12:43)
[2018-05-20] MEDS ORDERED: IBUPROFEN 800 MG TABLET PO PRN (12:43)
[2018-05-20] MEDS ORDERED: RINGERS SOLUTION,LACTATED 1,000 ML IV PRN (12:55)
[2018-05-20 14:06] VITALS: BP 101/56
[2018-05-20 14:10] LABS: CHLAM PCR NOT DETECTED (NOT DETECT); GON PCR NOT DETECTED (NOT DETECT)
[2018-05-20] MEDS ORDERED: KETOROLAC TROMETHAMINE 60 MG/2 ML SDV ONE (14:36)
[2018-05-20] MEDS ORDERED: DEXAMETHASONE SOD PHOSPHATE INJ 4 MG/1 ML VIAL ONE (14:36)
--- NOTE | 2018-06-17 07:07 | Operative Report ---
Operative Report DATE OF SURGERY: 05/20/18 PREOPERATIVE DIAGNOSIS: Abnormal IUP, MAB possible blighted ovum POSTOPERATIVE DIAGNOSIS: KATELYN OPERATION: EUA, Paracervical Block, Suction Dilation and Curettage SURGEON: ANGELIQUE HER ANESTHESIA: LMAC TISSUE REMOVED OR ALTERED: POC COMPLICATIONS: None ESTIMATED BLOOD LOSS: 10ml INTRAOPERATIVE FINDINGS: 8wks size uterus, uterus sounded to 8cm, moderate products of conception noted PROCEDURE: Anesthesia: [Yuliet OVALLES, Carri Zazueta [employer]PERVIS[employer]] EBL: [10ml] IVF: [200ml] UOP: [void] Indications: [23yo with abnormal IUP abnormally rising BHCG suspect blighted ovum or missed . Reviewed risks/benefits/alternatives to procedure. She desires to proceed with Suction Dilation Currkarla.] Procedure: The patient was taken to the Operating Room where general anesthesia was obtained without difficulty. She was prepped and draped in the normal sterile fashion in the dorsal lithotomy position. Exam under anesthesia was performed and noted above. A speculum was placed in the vagina. The anterior cervix was grasped with a single-tooth tenaculum and the uterus sounded to [8cm ] after paracervical block was performed with 8 mL of 1% lidocaine with epinephrine. The cervix was noted to be closed at the beginning of the procedure. Sequential dilators were then used to dilate the cervix to accommodate the the 8 mm suction curet curved. The 8 mm curved suction curet was gently advanced in the usual fashion and good return of tissue. The suction device was then activated and the curet rotated to clear the uterus of the products of conception. A sharp curettage was then performed. The suction device was then gently reintroduced and activated and the curet rotated to clear the uterus of conception which was loosened with recent sharp curettage. The sharp curettage was then performed again until a gritty texture was noted and the cavity was felt to be empty of further tissue. At this time there was minimal bleeding noted from the cervix. All instruments were removed from the patient's cervix and vagina. Silver nitrate was applied to the tenaculum site for hemostasis. Sponge lap needle and instrument counts are correct 2. Doxycycline 100 mg IV was given perioperatively. The patient tolerated the procedure well and was taken to the recovery area awake and in stable condition. The patient was discharged home with pain medications.
== END 2018-05-20 14:00 | disposition home or self-care (01) ==
LOC: OROUT 09:57
PROVIDERS: ATTEND Student in an Organized Health Care Education/Training Program
DX: O02.1 Missed abortion (principal); O02.0 Blighted ovum and nonhydatidiform mole
CPT/HCPCS: 86900; 86901; 36415; 86850; 85027; 87491; 87591; 88305 ×2; 59820; J2250; J1100; J3490 ×2; J1885; J3010; J7060; J2704; 940; J0131; J2210; Q9968

== ENCOUNTER 2018-06-27 13:36 | Emergency (ER) | payer OTHER ==
--- NOTE | 2018-06-27 15:40 | ER Document Report ---
ED GI/ - General Chief Complaint: Vaginal Bleeding Stated Complaint: VAGINAL BLEEDING Time Seen by Provider: 06/27/18 15:28 Notes: 23-year-old female to emergency department complaining of heavy vaginal bleeding. Patient states that she had a recent heterotopic with one in the fallopian tube/ovary and another one in the uterus. Had a D&C done and in late May. Having significant amount of vaginal bleeding at this time. Mild abdominal cramping. TRAVEL OUTSIDE OF THE [place] IN LAST 30 DAYS: No - HPI Patient complains to provider of: Other - Heavy menstrual period. Large amount of vaginal bleeding. Timing/Duration: Gradual - Related Data Allergies/Adverse Reactions: No Known Allergies Allergy (Verified 06/27/18 13:37) Past Medical History - General Information source: Patient - Social History Smoking Status: Never Smoker Frequency of alcohol use: None Drug Abuse: None Lives with: Family Family History: Reviewed & Not Pertinent Patient has suicidal ideation: No Patient has homicidal ideation: No - Past Medical History Cardiac Medical History: Denies: Hx Congestive Heart Failure, Hx Coronary Artery Disease, Hx Heart Attack, Hx Hypertension Pulmonary Medical History: Denies: Hx Asthma, Hx Bronchitis, Hx COPD, Hx Pneumonia, Hx Tuberculosis Neurological Medical History: Denies: Hx Cerebrovascular Accident, Hx Seizures Renal/ Medical History: Denies: Hx End Stage Renal Disease, Hx Kidney Stones, Hx Peritoneal Dialysis GI Medical History: Denies: Hx Cirrhosis, Hx Gastroesophageal Reflux Disease, Hx Ulcer Musculoskeletal Medical History: Denies Hx Arthritis, Denies Hx Multiple Sclerosis Psychiatric Medical History: Denies: Hx Bipolar Disorder, Hx Depression, Hx Schizophrenia Past Surgical History: Reports: Other - [place] teeth - Immunizations Hx Diphtheria, Pertussis, Tetanus Vaccination: Yes Review of Systems - Review of Systems Notes: Constitutional: denies: Chills, Diaphoresis, Fever, Malaise, Weakness EENT: denies: Eye discharge, Blurred vision, Tearing, Double vision, Nose congestion, Nose discharge, Throat swelling, Mouth pain Cardiovascular: denies: Palpitations, Heart racing, Orthopnea, Dyspnea, Chest pain Respiratory: denies: Cough, Hurts to breathe, Wheezing, Shortness of breath Gastrointestinal: denies: Abdominal pain, Diarrhea, Nausea, Vomiting, Black stools, bright red blood in stool Genitourinary: denies: Burning, Dysuria, Discharge, Frequency, Flank pain, Hematuria complains of a large amount of vaginal bleeding. Some uterine cramps Musculoskeletal: denies: Joint pain, Joint swelling, Muscle pain, Muscle stiffness, back pain Hematologic/Lymphatic: denies: Anemia, Easy bleeding, Easy bruising, Blood clots Neurological/Psychological: denies: Confusion, Dementia, Depression, Loss of consciousness Skin: No lesions, no masses, no skin breakdown, no abscesses Physical Exam - Vital signs Vitals: Temp Pulse Resp BP Pulse Ox 98.5 F 98 18 104/72 99 06/27/18 14:02 06/27/18 14:02 06/27/18 14:02 06/27/18 14:02 06/27/18 14:02 Interpretation: Normal - General General appearance: Appears well, Alert - HEENT Head: Normocephalic, Atraumatic Eyes: Normal Pupils: PERRL - Respiratory Respiratory status: No respiratory distress Chest status: Nontender Breath sounds: Normal Chest palpation: Normal - Cardiovascular Rhythm: Regular Heart sounds: Normal auscultation Murmur: No - Abdominal Inspection: Normal Distension: No distension Bowel sounds: Normal Tenderness: Nontender Organomegaly: No organomegaly - Back Back: Normal, Nontender - Extremities General upper extremity: Normal inspection, Nontender, Normal color, Normal ROM , Normal temperature General lower extremity: Normal inspection, Nontender, Normal color, Normal ROM , Normal temperature, Normal weight bearing. No: Marta's sign - Neurological Neuro grossly intact: Yes Cognition: Normal Orientation: AAOx4 [place] Coma Scale Eye Opening: Spontaneous [place] Coma Scale Verbal: Oriented [place]el[place] Coma Scale Motor: Obeys Commands [place] Coma Scale Total: 15 Speech: Normal Motor strength normal: LUE, RUE, LLE, RLE Sensory: Normal - Psychological Associated symptoms: Normal affect, Normal mood - Skin Skin Temperature: Warm Skin Moisture: Dry Skin Color: Normal Course - Re-evaluation Re-evalutation: 06/27/18 18:02 Laboratory 06/27/18 06/27/18 16:29 16:29 WBC 5.7 RBC 4.40 Hgb 13.9 Hct 39.6 MCV 90 MCH 31.6 MCHC 35.1 RDW 12.7 Plt Count 320 Seg Neutrophils % 59.4 Lymphocytes % 30.8 Monocytes % 7.2 Eosinophils % 2.0 Basophils % 0.6 Absolute Neutrophils 3.4 Absolute Lymphocytes 1.7 Absolute Monocytes 0.4 Absolute Eosinophils 0.1 Absolute Basophils 0.0 Sodium 142.0 Potassium 4.1 Chloride 104 Carbon Dioxide 25 Anion Gap 13 BUN 14 Creatinine 0.83 Est GFR ( Amer) > 60 Est GFR (Non-Af Amer) > 60 Glucose 92 Calcium 9.7 Total Bilirubin 0.6 Direct Bilirubin 0.3 Neonat Total Bilirubin Not Reportable Neonat Direct Bilirubin Not Reportable Neonat Indirect Bili Not Reportable AST 24 ALT 24 Alkaline Phosphatase 64 Total Protein 8.0 Albumin 4.6 Beta HCG, Quant < 2.39 Total Beta HCG NEGATIVE Pelvis Ultrasound 06/27/18 15:37 IMPRESSION: Nonvisualized right ovary. Otherwise age-appropriate exam. Patient has completely normal exam as well as normal labs and normal ultrasound. Consulted with Dr. Rodriguez with [employer]. He will relay information to Dr. Her. At this time I will give patient warning signs with regards to dysfunctional uterine bleeding and DC at this time in stable condition. - Vital Signs Vital signs: Temp Pulse Resp BP Pulse Ox 98.5 F 98 18 104/72 99 06/27/18 14:02 06/27/18 14:02 06/27/18 14:02 06/27/18 14:02 06/27/18 14:02 - Laboratory Result Diagrams: 06/27/18 16:29 06/27/18 16:29 Discharge - Discharge Clinical Impression: Dysfunctional uterine bleeding Condition: Good Disposition: HOME, SELF-CARE Instructions: Dysfunctional Uterine Bleeding ([facility]) Referrals: ANGELIQUE HER MD [ACTIVE STAFF] - Follow up as needed
[2018-06-27 16:43] LABS: ABSOLUTE EOSINOPHILS # (AUTO) 0.1 10^3/uL (0.0-0.6); ABSOLUTE LYMPHOCYTES (AUTO) 1.7 10^3/uL (0.5-4.7); ABSOLUTE MONOCYTES (AUTO) 0.4 10^3/uL (0.1-1.4); ABSOLUTE NEUT (AUTO) 3.4 10^3/uL (1.7-8.2); BASOPHILS % (AUTO) 0.6 % (0-2); HEMATOCRIT 39.6 % (36.0-47.0); HEMOGLOBIN 13.9 g/dL (12.0-15.5); LYMPHOCYTES % (AUTO) 30.8 % (13-45); MEAN CORPUSCULAR HEMOGLOBIN 31.6 pg (27.0-33.4); MEAN CORPUSCULAR HGB CONC 35.1 g/dL (32.0-36.0); MEAN CORPUSCULAR VOLUME 90 fl (80-97); MONOCYTES % (AUTO) 7.2 % (3-13); PLATELET COUNT 320 10^3/uL (150-450); RED CELL DISTRIBUTION WIDTH 12.7 % (11.5-14.0); SEGMENTED NEUTROPHILS % (AUTO) 59.4 % (42-78); TOTAL CELLS COUNTED % (AUTO) 100 %; WHITE BLOOD COUNT 5.7 10^3/uL (4.0-10.5)
[2018-06-27 17:07] LABS: ALANINE AMINOTRANSFERASE 24 U/L (9-52); ALBUMIN 4.6 g/dL (3.5-5.0); ALKALINE PHOSPHATASE 64 U/L (38-126); ANION GAP 13 (5-19); ASPARTATE AMINO TRANSFERASE 24 U/L (14-36); BILIRUBIN,DIRECT 0.3 mg/dL (0.0-0.4); BILIRUBIN,TOTAL 0.6 mg/dL (0.2-1.3); BLOOD UREA NITROGEN 14 mg/dL (7-20); CALCIUM 9.7 mg/dL (8.4-10.2); CARBON DIOXIDE 25 mmol/L (22-30); CHLORIDE 104 mmol/L (98-107); GLUCOSE 92 mg/dL (75-110); POTASSIUM 4.1 mmol/L (3.6-5.0)
--- NOTE | 2018-06-27 17:51 | RADIOLOGY REPORT (SQ) ---
EXAM DESCRIPTION: U/S NON OB PEL W/DOPPLER COMPLETED DATE/TIME: 06/27/2018 5:31 pm REASON FOR STUDY: Heavy vaginal bleeding, recent ectopic COMPARISON: None. TECHNIQUE: Dynamic and static grayscale images acquired of the pelvis via transabdominal approach an d recorded on PACS. Additional selected color Doppler and spectral images recorded. LIMITATIONS: None. FINDINGS: UTERUS: Contour normal. No mass. ENDOMETRIAL STRIPE: No focal or generalized thickening. No masses. CERVIX: No nabothian cysts. RIGHT OVARY AND DOPPLER: Ovary not visualized. LEFT OVARY AND DOPPLER: Normal size. No worrisome masses. Normal arterial vascular flow without evide nce for torsion. FREE FLUID: Minimal cul-de-sac free fluid. OTHER: No other significant finding. MEASUREMENTS: UTERUS: 7.6 x 4.3 x 3.3 cm ENDOMETRIAL STRIPE: 4 mm RIGHT OVARY: Not visualized. LEFT OVARY: 4.1 x 2.5 x 1.9 sign IMPRESSION: Nonvisualized right ovary. Otherwise age-appropriate exam. TECHNICAL DOCUMENTATION: JOB ID: [id number] [id number] 2010 [employer]- All Rights Reserved Rev-03/18 Reading location - IP/workstation name: [email or web address]
[2018-06-27 18:26] VITALS: BP 109/73
== END 2018-06-27 18:23 | disposition home or self-care (01) ==
LOC: ER 13:36
DX: N93.8 Other specified abnormal uterine and vaginal bleeding (principal)
CPT/HCPCS: 36415; 76856; 80053; 84702; 85025; 93976; 99284

== ENCOUNTER 2018-08-13 22:48 | Emergency (ER) | payer OTHER ==
[2018-08-13 23:09] VITALS: BP 111/58
[2018-08-13] MEDS ORDERED: IBUPROFEN 600 MG TABLET PO ONE (23:47)
--- NOTE | 2018-08-13 23:48 | ER Document Report ---
ED Medical Screen (RME) - General Chief Complaint: Foot Pain Stated Complaint: LEFT FOOT PAIN Time Seen by Provider: 08/13/18 23:46 Mode of Arrival: Ambulatory Information source: Patient Notes: 23-year-old female presents to ED for complaint of left foot pain. She states she has been working almost every day for the last 2 weeks 8 hours and more a day standing on her feet working at the [employer]. She states she started having some discomfort in her left foot and now it is to the point that any movement with her left foot is extremely painful. She states it is very painful to walk. She states she has had no acute injury but she thinks she has a strep fresh fracture from all of the walking. She is limping on her left foot. Patient states she has had a history of miscarriage and ectopic at the same time. She states she had one in her uterus and one ectopic ended up with a D&C and a surgery for the ectopic . Patient denies any smoking or drugs but states she does drink maybe once a month. I have greeted and performed a rapid initial assessment of this patient. A comprehensive ED assessment and evaluation of the patient, analysis of test results and completion of medical decision making process will be conducted by an additional ED providers. TRAVEL OUTSIDE OF THE [place] IN LAST 30 DAYS: No - Related Data Allergies/Adverse Reactions: No Known Allergies Allergy (Verified 06/27/18 13:37) Past Medical History - Past Medical History Cardiac Medical History: Denies: Hx Congestive Heart Failure, Hx Coronary Artery Disease, Hx Heart Attack, Hx Hypertension Pulmonary Medical History: Denies: Hx Asthma, Hx Bronchitis, Hx COPD, Hx Pneumonia, Hx Tuberculosis Neurological Medical History: Denies: Hx Cerebrovascular Accident, Hx Seizures Renal/ Medical History: Denies: Hx End Stage Renal Disease, Hx Kidney Stones, Hx Peritoneal Dialysis GI Medical History: Denies: Hx Cirrhosis, Hx Gastroesophageal Reflux Disease, Hx Ulcer Musculoskeltal Medical History: Denies Hx Arthritis, Denies Hx Multiple Sclerosis Psychiatric Medical History: Denies: Hx Bipolar Disorder, Hx Depression, Hx Schizophrenia Past Surgical History: Reports: Other - [place] teeth - Immunizations Hx Diphtheria, Pertussis, Tetanus Vaccination: Yes History of Influenza Vaccine for 08/2017 - 12/2017 Season: Yes Influenza Administration Date for 08/2017 - 12/2017 Season: 10/01/17 Physical Exam - Vital signs Vitals: Temp Pulse Resp BP Pulse Ox 99.5 F 90 16 111/58 L 99 08/13/18 23:09 08/13/18 23:09 08/13/18 23:09 08/13/18 23:09 08/13/18 23:09 Course - Vital Signs Vital signs: Temp Pulse Resp BP Pulse Ox 99.5 F 90 16 111/58 L 99 08/13/18 23:09 08/13/18 23:09 08/13/18 23:09 08/13/18 23:09 08/13/18 23:09 Doctor's Discharge - Discharge Referrals: SUNNY CESAR MD [Primary Care Provider] - Follow up as needed
--- NOTE | 2018-08-14 00:11 | ER Document Report ---
HPI - HPI Pain Level: 4 Notes: Patient is an otherwise healthy 23-year-old female who presents with chief complaint of left foot pain. Patient reports there is pain over the dorsal surface of the foot near the fourth and fifth digits. Patient denies any specific injury. - REPRODUCTIVE Reproductive: DENIES: : Past Medical History - General Information source: Patient - Social History Smoking Status: Never Smoker Frequency of alcohol use: None Drug Abuse: None Family History: Reviewed & Not Pertinent - Medical History Medical History: Negative - Past Medical History Cardiac Medical History: Denies: Hx Congestive Heart Failure, Hx Coronary Artery Disease, Hx Heart Attack, Hx Hypertension Pulmonary Medical History: Denies: Hx Asthma, Hx Bronchitis, Hx COPD, Hx Pneumonia, Hx Tuberculosis Neurological Medical History: Denies: Hx Cerebrovascular Accident, Hx Seizures Renal/ Medical History: Denies: Hx End Stage Renal Disease, Hx Kidney Stones, Hx Peritoneal Dialysis GI Medical History: Denies: Hx Cirrhosis, Hx Gastroesophageal Reflux Disease, Hx Ulcer Musculoskeletal Medical History: Denies Hx Arthritis, Denies Hx Multiple Sclerosis Psychiatric Medical History: Denies: Hx Bipolar Disorder, Hx Depression, Hx Schizophrenia Past Surgical History: Reports: Hx Oral Surgery - Immunizations Hx Diphtheria, Pertussis, Tetanus Vaccination: Yes Vertical Provider Document - CONSTITUTIONAL Notes: PHYSICAL EXAMINATION: GENERAL: Well-appearing, well-nourished and in no acute distress. HEAD: Atraumatic, normocephalic. EYES: Pupils equal round extraocular movements intact, conjunctiva are normal. ENT: Nares patent NECK: Normal range of motion LUNGS: No respiratory distress Musculoskeletal: Normal range of motion, tenderness to palpation over left fourth and fifth metatarsals, no ecchymosis or edema noted. Cap refill less than 3 seconds normal motor and sensation distal to area of pain. NEUROLOGICAL: Normal speech, normal gait. PSYCH: Normal mood, normal affect. SKIN: Warm, Dry, normal turgor, no rashes or lesions noted. - INFECTION CONTROL TRAVEL OUTSIDE OF THE [place] IN LAST 30 DAYS: No Course - Re-evaluation Re-evalutation: 08/14/18 00:45 X-ray is negative for any acute fracture or dislocation. Assessment is unremarkable. Weston wrap will be applied for comfort. Patient will be instructed to take ibuprofen and ice the extremity. - Vital Signs Vital signs: Temp Pulse Resp BP Pulse Ox 99.5 F 90 16 111/58 L 99 08/13/18 23:09 08/13/18 23:09 08/13/18 23:09 08/13/18 23:09 08/13/18 23:09 Procedures - Immobilization LEFT FOOT Immobilizer type: Weston wrap Performed by: Provider, Provider assisted, RN, PCT, Other Discharge - Discharge Clinical Impression: Foot pain, left Condition: Stable Disposition: HOME, SELF-CARE Additional Instructions: Contusion Your pain is most likely the result of a contusion -- a crushing of the deep tissues. No injury to important structures was detected during the physician's exam. Contusions vary in the amount of pain they cause, and in the length of time required for healing. Typically, the area will become bruised, and will remain painful to touch for two or three weeks. However, most patients are back to working and playing within a few days. After the initial period of rest and cold-packs, your symptoms (together with the doctor's recommendations) will determine how rapidly you can get back to full activity. Usually this means "do what feels okay, but don't do things that hurt." If re-examination was recommended, it's important to follow up as instructed. Call the doctor or return any time if pain increases, if swelling becomes severe, if you develop numbness or weakness in an injured extremity, or if any other alarming symptoms occur. Ice & Elevation Apply ice packs frequently against the painful area. Many different schedules are recommended, such as "20 minutes on, 20 minutes off" or "one hour ice, two hours rest." If you need to work, you may need to go longer between ice treatments. You should plan to have the area ice packed AT LEAST one- fourth of the time. The ice should be applied over the wrap, tape, or splint, or over a layer of cloth -- not directly against the skin. Some ice bags have a built-in cloth and can be put directly on the skin. Your injured part should be elevated as much as possible over the next 48 hours. Try to keep the injury above the level of the heart. Avoid use of the injured area. Elevation and rest will decrease the swelling. Take ibuprofen 600 mg every 6 hours for pain and inflammation. Use the Weston wrap as needed for comfort. The x-ray today was negative for any fracture or dislocation. You may apply ice and elevate your extremity for comfort. Follow- up with your primary care provider in the next 3-5 days for a follow-up. Referrals: SUNNY CESAR MD [Primary Care Provider] - Follow up as needed
--- NOTE | 2018-08-14 00:30 | RADIOLOGY REPORT (SQ) ---
3 VIEWS OF THE LEFT FOOT HISTORY: Pain to fourth and fifth digits. COMPARISON: None. FINDINGS/IMPRESSION: No acute fracture or malalignment. Joint spaces are preserved. No joint effusion or soft tissue swelling.
== END 2018-08-14 00:58 | disposition home or self-care (01) ==
LOC: ER 22:48
DX: M79.672 Pain in left foot (principal)
CPT/HCPCS: 99283

== ENCOUNTER 2018-11-05 23:31 | Emergency (ER) | payer OTHER ==
[2018-11-06] MEDS ORDERED: CEPHALEXIN 500 MG CAPSULE PO ONE (01:26)
--- NOTE | 2018-11-06 01:34 | ER Document Report ---
HPI - HPI Patient complains to provider of: rash Time Seen by Provider: 11/06/18 01:25 Pain Level: 4 Context: Pleasant 23-year-old female presents the emergency department for concern for arm infection after getting a left arm tattoo. 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 She noticed the symptoms occur over the last couple of days and complains of redness underlying a small area of the tattoo. She denies fevers, chills, any systemic symptoms. She states her tetanus is up-to-date. - REPRODUCTIVE Reproductive: DENIES: : Past Medical History - General Information source: Patient - Social History Smoking Status: Never Smoker Chew tobacco use (# tins/day): No Frequency of alcohol use: Rare Drug Abuse: None Family History: Reviewed & Not Pertinent Patient has suicidal ideation: No Patient has homicidal ideation: No - Past Medical History Cardiac Medical History: Denies: Hx Congestive Heart Failure, Hx Coronary Artery Disease, Hx Heart Attack, Hx Hypertension Pulmonary Medical History: Denies: Hx Asthma, Hx Bronchitis, Hx COPD, Hx Pneumonia, Hx Tuberculosis Neurological Medical History: Denies: Hx Cerebrovascular Accident, Hx Seizures Renal/ Medical History: Denies: Hx End Stage Renal Disease, Hx Kidney Stones, Hx Peritoneal Dialysis GI Medical History: Denies: Hx Cirrhosis, Hx Gastroesophageal Reflux Disease, Hx Ulcer Musculoskeletal Medical History: Denies Hx Arthritis, Denies Hx Multiple Scleros is Psychiatric Medical History: Denies: Hx Bipolar Disorder, Hx Depression, Hx Schizophrenia Past Surgical History: Reports: Hx Oral Surgery, Other - [place] teeth - Immunizations Hx Diphtheria, Pertussis, Tetanus Vaccination: Yes Vertical Provider Document - CONSTITUTIONAL Notes: Reviewed vital signs and nursing note as charted by RN. CONSTITUTIONAL: Well-appearing, well-nourished, acting appropriately for age HEAD: Normocephalic, atraumatic, no swelling EYES: PERRL, Conjunctivae clear, no drainage, EOMI, no scleral icterus ENT: External ears without lesions, External auditory canal is patent, airway patent, mucous membranes pink and moist NECK: Supple, no cervical lymphadenopathy, no masses EXT: Normal ROM in all joints, non-tender to palpation, no effusions, no edema SKIN: Normal color for age and race, warm, dry, good turgor, tattoo on volar aspect of left forearm with an area of underlying erythema slightly raised and warm. Area of tattoo has a thick scab. No purulent discharge, no open wound. NEURO: No facial asymmetry, moves all extremities equally, motor and sensory function intact - INFECTION CONTROL TRAVEL OUTSIDE OF THE [place] IN LAST 30 DAYS: No Course - Re-evaluation Re-evalutation: 11/06/18 01:29 Pleasant 23-year-old female presents the emergency department for concern for arm infection after getting a left arm tattoo. There is underlying erythema approximately 2 cm around underlying part of her tattoo with a heavy scab. Nonpurulent skin is closed. She denies fevers, chills, any infectious or systemic symptoms. Symptoms are most consistent with mild cellulitis. Because she had a recent tattoo 1 week ago and foreign body was introduced I will treat her for MSSA and give her Keflex 500 mg 1 time in the emergency department then 500 mg every 6 hours for 7 days. I advised her if her symptoms do not start to improve after 2-3 days that it could be a MRSA infection and she should follow- up for treatment Patient presents with symptoms most consistent with an acute cellulitis to receiving a tattoo. VItals within normal limits. Patient does not meet sepsis criteria is overall very well in appearance. Exam and history are not consistent with DVT. Patient will be started on coverage for both staph and strep. At this time will discharge with return precautions and follow-up recommendations. Verbal discharge instructions given a the bedside and opportunity for questions given. Medication warnings reviewed. Patient is in agreement with this plan and has verbalized understanding of return precautions and the need for possible primary care follow-up in the next 24-72 hours. 11/06/18 01:35 - Vital Signs Vital signs: Temp Pulse Resp BP Pulse Ox 98.7 F 91 18 113/68 96 11/05/18 23:31 11/05/18 23:31 11/05/18 23:31 11/05/18 23:31 11/05/18 23:31 Discharge - Discharge Clinical Impression: Cellulitis Qualifiers: Site of cellulitis: extremity Site of cellulitis of extremity: upper extremity Laterality: left Qualified Code(s): L03.114 - Cellulitis of left upper limb Condition: Good Disposition: HOME, SELF-CARE Instructions: Cellulitis ([facility]) Additional Instructions: The rash is likely due to infection of your skin. You need to take the antibiotics as prescribed. Do not stop even if the rash goes away until you have completed all the antibiotics. The area of redness was traced out here in the emergency department with a marking pen. You need to return to emergency department if the redness spreads outside of this area by more than 2 cm in any direction. You should also return if you develop fevers with temperature greater than 101, persistent vomiting, worsening pain, or have any other symptoms that are concerning to you. Prescriptions: Cephalexin [Keflex] 500 mg PO Q6H 7 Days #28 capsule Referrals: SUNNY CESAR MD [Primary Care Provider] - Follow up as needed
[2018-11-06 01:45] VITALS: BP 106/53
== END 2018-11-06 01:49 | disposition home or self-care (01) ==
LOC: ER 23:31
DX: L03.114 Cellulitis of left upper limb (principal)
CPT/HCPCS: 99283

== ENCOUNTER 2018-11-13 00:16 | Emergency (ER) | payer OTHER ==
[2018-11-13 02:04] LABS: APPEARANCE,URINE SLIGHTLY-CLOUDY; BILIRUBIN,URINE NEGATIVE (NEGATIVE); COLOR,URINE YELLOW; GLUCOSE, URINE NEGATIVE (NEGATIVE); KETONES,URINE NEGATIVE (NEGATIVE); LEUKOCYTE ESTERASE,URINE LARGE (NEGATIVE); NITRITE,URINE NEGATIVE (NEGATIVE); PROTEIN,URINE NEGATIVE (NEGATIVE); URINE SPECIFIC GRAVITY 1.014; UROBILINOGEN,URINE NEGATIVE mg/dL (<2.0)
[2018-11-13] MEDS ORDERED: NORMAL SALINE 1000 ML 1,000 ML IV ONE (02:06)
[2018-11-13] MEDS ORDERED: METOCLOPRAMIDE HCL INJ/PF 10 MG/2 ML SDV IV ONE (02:06)
--- NOTE | 2018-11-13 02:08 | ER Document Report ---
ED GI/ - General Chief Complaint: Pelvic Pain Stated Complaint: ABDOMINAL PAIN Time Seen by Provider: 11/13/18 01:45 Notes: Patient is a 23-year-old female, with 4 first trimester spontaneous miscarriages, that comes emergency department for chief complaint of mid to lower abdominal cramping. She denies bleeding. She does report nausea but denies vomiting. She denies fever, dysuria, vaginal discharge. She is 4-5 weeks based on last menstrual period. She states that she has seen a fertility specialist, she takes baby aspirin, progesterone, vitamins. She has had D&Cs. She denies any other medical history. TRAVEL OUTSIDE OF THE [place] IN LAST 30 DAYS: No - Related Data Allergies/Adverse Reactions: No Known Allergies Allergy (Verified 08/14/18 00:51) Past Medical History - General Information source: Patient - Social History Smoking Status: Never Smoker Frequency of alcohol use: None Drug Abuse: None Lives with: Family Family History: Reviewed & Not Pertinent - Past Medical History Cardiac Medical History: Denies: Hx Congestive Heart Failure, Hx Coronary Artery Disease, Hx Heart Attack, Hx Hypertension Pulmonary Medical History: Denies: Hx Asthma, Hx Bronchitis, Hx COPD, Hx Pneumonia, Hx Tuberculosis Neurological Medical History: Denies: Hx Cerebrovascular Accident, Hx Seizures Renal/ Medical History: Denies: Hx End Stage Renal Disease, Hx Kidney Stones, Hx Peritoneal Dialysis GI Medical History: Denies: Hx Cirrhosis, Hx Gastroesophageal Reflux Disease, Hx Ulcer Musculoskeletal Medical History: Denies Hx Arthritis, Denies Hx Multiple Sclerosis Psychiatric Medical History: Denies: Hx Bipolar Disorder, Hx Depression, Hx Schizophrenia Past Surgical History: Reports: Hx Oral Surgery, Other - [place] teeth - Immunizations Hx Diphtheria, Pertussis, Tetanus Vaccination: Yes Review of Systems - Review of Systems Constitutional: No symptoms reported EENT: No symptoms reported Cardiovascular: No symptoms reported Respiratory: No symptoms reported Gastrointestinal: See HPI Genitourinary: See HPI Female Genitourinary: See HPI Musculoskeletal: No symptoms reported Skin: No symptoms reported Hematologic/Lymphatic: No symptoms reported Neurological/Psychological: No symptoms reported Physical Exam - Vital signs Vitals: Temp Pulse Resp BP Pulse Ox 98.6 F 110 H 16 112/63 99 11/13/18 00:31 11/13/18 00:31 11/13/18 00:11/13/18 00:31 11/13/18 00:31 - Notes Notes: GENERAL: Alert, interacts well. No acute distress. HEAD: Normocephalic, atraumatic. EYES: Pupils equal, round, and reactive to light. Extraocular movements intact. ENT: Oral mucosa moist, tongue midline. Oropharynx unremarkable. Airway patent. Nares patent, no nasal septal hematoma, TM's intact. NECK: Full range of motion. Supple. Trachea midline. LUNGS: Clear to auscultation bilaterally, no wheezes, rales, or rhonchi. No respiratory distress. HEART: Regular rate and rhythm. No murmur ABDOMEN: Soft, non-tender. Non-distended. Bowel sounds present in all 4 quadrants. GENITOURINARY: Deferred EXTREMITIES: Moves all 4 extremities spontaneously. No edema, normal radial and dorsalis pedis pulses bilaterally. No cyanosis. BACK: no cervical, thoracic, lumbar midline tenderness. No saddle anesthesia, normal distal neurovascular exam. NEUROLOGICAL: Alert and oriented x3. Normal speech. [cranial nerves II through XII grossly intact]. PSYCH: Normal affect, normal mood. SKIN: Warm, dry, normal turgor. No rashes or lesions noted. Course - Re-evaluation Re-evalutation: Patient well-appearing on my exam. She is not tachycardic on my exam but she was given IV fluids, some nausea medication. Soft benign abdomen. Ultrasound showing very early intrauterine , no other concerning findings. HCG is in the 1200s. Urine does suggest infection although there are some epithelials. I did discuss this with patient. She was placed on antibiotics, provided with nausea medication, provided with her information, she already has no BG with discussed return precautions. Patient states understanding and agreement. - Vital Signs Vital signs: Temp Pulse Resp BP Pulse Ox 98.4 F 93 15 110/62 99 11/13/18 05:18 11/13/18 05:18 11/13/18 05:18 11/13/18 05:18 11/13/18 05:18 - Laboratory Result Diagrams: 11/13/18 02:30 Laboratory results interpreted by me: 11/13/18 11/13/18 00:30 02:30 Beta HCG, Quant 1235.80 H Ur Leukocyte Esterase LARGE H Urine HCG, Qual POSITIVE H Discharge - Discharge Clinical Impression: Pelvic pain Condition: Stable Disposition: HOME, SELF-CARE Additional Instructions: Follow-up closely with your EARLY CHILDHOOD COORDINATOR to compare your hCG levels. We do see what appears to be an early gestational sac growing in the current location (within the uterus). No additional details are seen because this is very early. Your urine does indicate infection, we have placed on antibiotic, take as prescribed. Take Reglan if needed for nausea/vomiting, stay hydrated. Return for any concerning symptoms including severe pain, heavy bleeding, passing out, fever/chills, or any other concerning symptoms. Prescriptions: Cephalexin Monohydrate [Keflex 500 mg Capsule] 500 mg PO BID #10 capsule Metoclopramide HCl [Reglan] 5 mg PO ASDIR PRN #30 tablet PRN Reason: Referrals: SUNNY CESAR MD [Primary Care Provider] - Follow up as needed
[2018-11-13 02:54] LABS: ABSOLUTE EOSINOPHILS # (AUTO) 0.1 10^3/uL (0.0-0.6); ABSOLUTE MONOCYTES (AUTO) 0.4 10^3/uL (0.1-1.4); ABSOLUTE NEUT (AUTO) 2.9 10^3/uL (1.7-8.2); BASOPHILS % (AUTO) 0.2 % (0-2); EOSINOPHILS % (AUTO) 2.6 % (0-6); HEMATOCRIT 36.8 % (36.0-47.0); HEMOGLOBIN 12.8 g/dL (12.0-15.5); LYMPHOCYTES % (AUTO) 36.7 % (13-45); MEAN CORPUSCULAR HEMOGLOBIN 31.5 pg (27.0-33.4); MEAN CORPUSCULAR HGB CONC 34.8 g/dL (32.0-36.0); MEAN CORPUSCULAR VOLUME 91 fl (80-97); MONOCYTES % (AUTO) 6.8 % (3-13); PLATELET COUNT 325 10^3/uL (150-450); RED BLOOD COUNT 4.06 10^6/uL (3.72-5.28); SEGMENTED NEUTROPHILS % (AUTO) 53.7 % (42-78); TOTAL CELLS COUNTED % (AUTO) 100 %; WHITE BLOOD COUNT 5.5 10^3/uL (4.0-10.5)
--- NOTE | 2018-11-13 04:29 | RADIOLOGY REPORT (SQ) ---
CLINICAL HISTORY: +HCG, sharp mid abd pain COMPARISON: None. 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 There is a 2 mm hypoechoic rounded structure within the uterus which may represent a very early gestational sac. Yolk sac or pole are not seen at this time. Right ovary measures 3.9 x 1.9 x 2.4 cm and left ovary measures 2.4 x 1.8 x 1.6 cm. There is patent flow to both ovaries. IMPRESSION: Possible very early gestational sac within the uterus, too small to characterize or date.
[2018-11-13 05:56] VITALS: BP 110/62
== END 2018-11-13 05:18 | disposition home or self-care (01) ==
LOC: ER 00:16
DX: O26.899 Other specified pregnancy related conditions, unspecified trimester (principal); R10.2 Pelvic and perineal pain; R11.0 Nausea; Z87.59 Personal history of other complications of pregnancy, childbirth and the puerperium; Z79.82 Long term (current) use of aspirin; Z79.899 Other long term (current) drug therapy; Z3A.00 Weeks of gestation of pregnancy not specified
CPT/HCPCS: 99284; 96374; 86900; 86901; 36415; 87086; 84702; 85025; 81025; 87088; 81001; 87186; 76817; 93976; J2765; J7030

== ENCOUNTER 2019-01-14 11:39 | Emergency (ER) | payer OTHER ==
[2019-01-14 11:44] VITALS: BP 97/60
--- NOTE | 2019-01-14 13:00 | ER Document Report ---
ED ENT - General Chief Complaint: Sore Throat Stated Complaint: SORE THROAT Time Seen by Provider: 01/14/19 12:23 Primary Care Provider: [facility] [Primary Care Provider] - Follow up as needed Mode of Arrival: Ambulatory Information source: Patient Notes: 23-year-old female presented to ED for complaint of sore throat denies any cough or congestion. She states she is about 14 weeks . She states she is 5 para 0 with all miscarriages. Patient is alert and oriented respirations regular and unlabored speaking in full sentences walks with a even steady gait. TRAVEL OUTSIDE OF THE [place] IN LAST 30 DAYS: No - HPI Patient complains to provider of: Throat problem Onset: Other Onset/Duration: Gradual Severity: Moderate Pain Level: 3 Context: Recent Illness Location of pain: Throat Associated symptoms: Runny nose, Sinus drainage, Sore throat Similar symptoms previously: Yes Recently seen / treated by doctor: No - Related Data Allergies/Adverse Reactions: No Known Allergies Allergy (Verified 01/14/19 11:40) Past Medical History - General Information source: Patient - Social History Smoking Status: Never Smoker Frequency of alcohol use: None Drug Abuse: None Lives with: Family Family History: Reviewed & Not Pertinent Patient has suicidal ideation: No Patient has homicidal ideation: No - Past Medical History Cardiac Medical History: Reports: None Pulmonary Medical History: Reports: None EENT Medical History: Reports: None Neurological Medical History: Reports: None Endocrine Medical History: Reports: None Renal/ Medical History: Reports: Hx Ectopic Malignancy Medical History: Reports: None GI Medical History: Reports: None Musculoskeletal Medical History: Reports None Skin Medical History: Reports None Psychiatric Medical History: Reports: None Traumatic Medical History: Reports: None Infectious Medical History: Reports: None Past Surgical History: Reports: Hx Dilation and Curettage, Hx Genitourinary Surgery - Laparoscopic for ectopic and rule out endometriosis, Hx Oral Surgery, Other - [place] teeth - Immunizations Hx Diphtheria, Pertussis, Tetanus Vaccination: Yes Review of Systems - Review of Systems Constitutional: No symptoms reported EENT: Nose discharge, Sinus discharge, Throat pain Cardiovascular: No symptoms reported Respiratory: No symptoms reported Gastrointestinal: No symptoms reported Genitourinary: No symptoms reported Female Genitourinary: No symptoms reported Musculoskeletal: No symptoms reported Skin: No symptoms reported Hematologic/Lymphatic: No symptoms reported Neurological/Psychological: No symptoms reported Physical Exam - Vital signs Vitals: Temp Pulse Resp BP Pulse Ox 98.2 F 95 18 97/60 L 99 01/14/19 11:43 01/14/19 11:43 01/14/19 11:43 01/14/19 11:43 01/14/19 11:43 Interpretation: Normal - General General appearance: Appears well, Alert - HEENT Head: Normocephalic, Atraumatic Eyes: Normal Pupils: PERRL Ears: Normal External canal: Normal Tympanic membrane: Normal Sinus: Normal Nasal: Purulent discharge, Swelling Mouth/Lips: Normal Mucous membranes: Normal Pharynx: Erythema, Post nasal drainage. No: Exudate, Peritonsillar abscess, Tonsillar hypertrophy - Respiratory Respiratory status: No respiratory distress Chest status: Nontender Breath sounds: Normal Chest palpation: Normal - Cardiovascular Rhythm: Regular Heart sounds: Normal auscultation Murmur: No - Abdominal Inspection: Normal Distension: No distension Bowel sounds: Normal Tenderness: Nontender Organomegaly: No organomegaly - Back Back: Normal, Nontender - Extremities General upper extremity: Normal inspection, Nontender, Normal color, Normal ROM, Normal temperature General lower extremity: Normal inspection, Nontender, Normal color, Normal ROM, Normal temperature, Normal weight bearing. No: Marta's sign - Neurological Neuro grossly intact: Yes Cognition: Normal Orientation: AAOx4 [place] Coma Scale Eye Opening: Spontaneous [place] Coma Scale Verbal: Oriented Emelina Coma Scale Motor: Obeys Commands [place] Coma Scale Total: 15 Speech: Normal Motor strength normal: LUE, RUE, LLE, RLE Sensory: Normal - Psychological Associated symptoms: Normal affect, Normal mood - Skin Skin Temperature: Warm Skin Moisture: Dry Skin Color: Normal Course - Vital Signs Vital signs: Temp Pulse Resp BP Pulse Ox 98.2 F 95 18 97/60 L 99 01/14/19 11:43 01/14/19 11:43 01/14/19 11:43 01/14/19 11:43 01/14/19 11:43 Discharge - Discharge Clinical Impression: Viral sore throat URI (upper respiratory infection) Qualifiers: URI type: unspecified viral URI Qualified Code(s): J06.9 - Acute upper respiratory infection, unspecified Condition: Stable Disposition: HOME, SELF-CARE Additional Instructions: SORE THROAT: Sore throats may be caused by viruses, bacteria, or fungi. Most are due to a virus, and must get better on their own. Bacterial sore throats, particularly those due to "strep," need treatment with antibiotics. If an antibiotic is prescribed, be sure to take the medication for a full 10 days. Failure to take the antibiotic can result in complications such as rheumatic fever. Sometimes, an injection of antibiotics is given instead of pills or liquid. This single "shot" is equal in effectiveness to the oral medication. To relieve symptoms, take acetaminophen for pain. Sip clear liquids frequently, or eat popsicles or ice chips. Anesthetic sprays or lozenges may help. Make sure the air in the room is not too dry. Avoid using decongestants or antihistamines. Call the doctor if there is no improvement in two days, or if you have difficulty breathing, increasing throat pain, high fever, rash, or frequent vomiting. UPPER RESPIRATORY ILLNESS: You have a viral infection of the respiratory passages -- a "cold." This common infection causes nasal congestion, drainage, and often sore throat and cough. It is highly contagious. The disease usually lasts about 10 to 14 days. There is no "cure" for the viral infection -- it must run its course. If there is a complication, such as bacterial infection in the nose, sinuses, middle ear, or bronchial tubes, antibiotics may be required. The antibiotics won't affect the virus. Drink plenty of fluids. A humidifier may help. An expectorant medication or decongestant may make you more comfortable. Use acetaminophen or ibuprofen for fever or aches. See the doctor if fever persists over two days, if there is any significant worsening of your symptoms, or if you simply fail to improve as expected. USE OF ACETAMINOPHEN (Tylenol): Acetaminophen may be taken for pain relief or fever control. It's much safer than aspirin, offering a wider range of "safe" dosages. It is safe during . Some brand names are Tylenol, Panadol, Datril, Anacin 3, Tempra, and Liquiprin. Acetaminophen can be repeated every four hours. The following are maximum recommended dosages: >89 pounds or adults 650 mg to 900 mg Acetaminophen can be repeated every four hours. Maximum dose not to exceed 4000 mg a day. FOLLOW-UP CARE: If you have been referred to a physician for follow-up care, call the physicians office for an appointment as you were instructed or within the next two days. If you experience worsening or a significant change in your symptoms, notify the physician immediately or return to the Emergency Department at any time for re-evaluation. Referrals: [facility] [Primary Care Provider] - Follow up as needed
== END 2019-01-14 13:01 | disposition home or self-care (01) ==
LOC: ER 11:39
DX: O99.519 Diseases of the respiratory system complicating pregnancy, unspecified trimester (principal); J02.8 Acute pharyngitis due to other specified organisms; B97.89 Other viral agents as the cause of diseases classified elsewhere; O26.899 Other specified pregnancy related conditions, unspecified trimester; R09.82 Postnasal drip; R09.89 Other specified symptoms and signs involving the circulatory and respiratory systems; Z3A.00 Weeks of gestation of pregnancy not specified
CPT/HCPCS: 87070; 87880; 99283

== ENCOUNTER 2019-05-15 18:15 | Outpatient (CLI) | payer OTHER ==
[2019-05-15] MEDS ORDERED: RINGERS SOLUTION,LACTATED 1,000 ML IV ONE (18:30)
[2019-05-15 18:49] LABS: BACTERIA (WET MOUNT) 4+ BACTERIA SEEN; EPITHELIALS (WET MOUNT) 3+ EPITHELIALS SEEN; T.VAGINALIS (WET MOUNT) NO TRICHOMONAS SEEN; WBCS (WET MOUNT) 2+ WBCS SEEN; YEAST (WET MOUNT) YEAST SEEN
[2019-05-15 19:22] LABS: APPEARANCE,URINE CLEAR; BILIRUBIN,URINE NEGATIVE (NEGATIVE); COLOR,URINE YELLOW; GLUCOSE, URINE NEGATIVE (NEGATIVE); KETONES,URINE NEGATIVE (NEGATIVE); LEUKOCYTE ESTERASE,URINE TRACE (NEGATIVE); NITRITE,URINE NEGATIVE (NEGATIVE); PROTEIN,URINE NEGATIVE (NEGATIVE); URINE SPECIFIC GRAVITY 1.014; UROBILINOGEN,URINE NEGATIVE mg/dL (<2.0)
[2019-05-15 19:33] LABS: URINE AMPHETAMINES SCREEN NEGATIVE; URINE BARBITURATES SCREEN NEGATIVE; URINE BENZODIAZEPINES SCREEN NEGATIVE; URINE COCAINE SCREEN NEGATIVE; URINE MARIJUANA (THC) SCREEN NEGATIVE; URINE METHADONE SCREEN NEGATIVE; URINE PHENCYCLIDINE SCREEN NEGATIVE
--- NOTE | 2019-05-15 20:06 | RADIOLOGY REPORT (SQ) ---
US PELVIS EXAM DATE: 05/15/2019 6:29 PM CDT HISTORY: Evaluate cervical length. COMPARISON: None. TECHNIQUE: Grayscale, color Doppler, and spectral Doppler ultrasound images of the pelvis were obtained. FINDINGS: The cervix measures 3.3 cm in length. There is a single intrauterine with heart rate 144 bpm. JOCE is 10.3 cm. Anterior placenta. IMPRESSION: Findings as above.
[2019-05-15] MEDS ORDERED: FLUCONAZOLE 100 MG TABLET PO ONE (20:12)
[2019-05-15 20:17] LABS: CHLAM PCR NOT DETECTED (NOT DETECT)
[2019-05-15] MEDS ORDERED: FLUCONAZOLE 100 MG TABLET ONE (20:17)
== END 2019-05-15 20:37 | disposition home or self-care (01) ==
LOC: LC 18:15
PROVIDERS: ATTEND Obstetrics & Gynecology
PROC: 4A1HXCZ Monitoring of Products of Conception, Cardiac Rate, External Approach (ICD-10-PCS; principal; 2019-05-15)
DX: O98.813 Other maternal infectious and parasitic diseases complicating pregnancy, third trimester (principal); B37.9 Candidiasis, unspecified; Z3A.30 30 weeks gestation of pregnancy
CPT/HCPCS: 59025; 76815; 80307; 81001; 84112; 87210; 87491; 87591

== ENCOUNTER 2019-06-10 20:19 | Inpatient (IN) | payer OTHER, MEDICAID ==
[2019-06-10 21:20] LABS: APPEARANCE,URINE SLIGHTLY-CLOUDY; BILIRUBIN,URINE NEGATIVE (NEGATIVE); COLOR,URINE YELLOW; GLUCOSE, URINE 50 mg/dL (NEGATIVE); KETONES,URINE NEGATIVE (NEGATIVE); LEUKOCYTE ESTERASE,URINE NEGATIVE (NEGATIVE); NITRITE,URINE NEGATIVE (NEGATIVE); PROTEIN,URINE 100 mg/dL (NEGATIVE); UROBILINOGEN,URINE NEGATIVE mg/dL (<2.0)
[2019-06-10 21:43] LABS: URINE AMPHETAMINES SCREEN NEGATIVE; URINE BARBITURATES SCREEN NEGATIVE; URINE BENZODIAZEPINES SCREEN NEGATIVE; URINE COCAINE SCREEN NEGATIVE; URINE MARIJUANA (THC) SCREEN NEGATIVE; URINE METHADONE SCREEN NEGATIVE; URINE PHENCYCLIDINE SCREEN NEGATIVE
[2019-06-10 22:10] LABS: ABSOLUTE EOSINOPHILS # (AUTO) 0.1 10^3/uL (0.0-0.6); ABSOLUTE LYMPHOCYTES (AUTO) 1.8 10^3/uL (0.5-4.7); ABSOLUTE MONOCYTES (AUTO) 0.6 10^3/uL (0.1-1.4); ABSOLUTE NEUT (AUTO) 6.3 10^3/uL (1.7-8.2); BASOPHILS % (AUTO) 0.2 % (0-2); EOSINOPHILS % (AUTO) 1.6 % (0-6); HEMATOCRIT 33.3 % (36.0-47.0); HEMOGLOBIN 11.3 g/dL (12.0-15.5); LYMPHOCYTES % (AUTO) 19.9 % (13-45); MEAN CORPUSCULAR HEMOGLOBIN 30.2 pg (27.0-33.4); MEAN CORPUSCULAR HGB CONC 33.8 g/dL (32.0-36.0); MEAN CORPUSCULAR VOLUME 89 fl (80-97); MONOCYTES % (AUTO) 7.1 % (3-13); PLATELET COUNT 303 10^3/uL (150-450); RED BLOOD COUNT 3.73 10^6/uL (3.72-5.28); RED CELL DISTRIBUTION WIDTH 13.4 % (11.5-14.0); SEGMENTED NEUTROPHILS % (AUTO) 71.2 % (42-78); TOTAL CELLS COUNTED % (AUTO) 100 %; WHITE BLOOD COUNT 8.9 10^3/uL (4.0-10.5)
[2019-06-10] MEDS ORDERED: CEFTRIAXONE INJ 1000 MG VIAL ONE (22:17)
[2019-06-10] MEDS ORDERED: CEFTRIAXONE INJ 1000 MG VIAL IV ONE (22:30)
[2019-06-10] MEDS ORDERED: RINGERS SOLUTION,LACTATED 1,000 ML IV ONE ×2 (22:30→23:59)
[2019-06-10 22:52] LABS: ALBUMIN 3.7 g/dL (3.5-5.0); ALKALINE PHOSPHATASE 155 U/L (38-126); ANION GAP 10 (5-19); ASPARTATE AMINO TRANSFERASE 22 U/L (14-36); BILIRUBIN,DIRECT 0.2 mg/dL (0.0-0.4); BILIRUBIN,TOTAL 0.2 mg/dL (0.2-1.3); BLOOD UREA NITROGEN 10 mg/dL (7-20); CALCIUM 9.3 mg/dL (8.4-10.2); CARBON DIOXIDE 20 mmol/L (22-30); CHLORIDE 106 mmol/L (98-107); GLUCOSE 81 mg/dL (75-110); POTASSIUM 3.9 mmol/L (3.6-5.0); TOTAL PROTEIN 6.9 g/dL (6.3-8.2)
[2019-06-10] MEDS ORDERED: ACETAMINOPHEN 325 MG TABLET PO PRN (23:52)
[2019-06-11 08:22] VITALS: BP 94/52
--- NOTE | 2019-06-11 10:13 | PDOC DISCHARGE SUMMARY ---
General - Admit/Disc Date/PCP Admission Date/Primary Care Provider: 06/10/19 23:38 ANGELIQUE HER MD Discharge Date: 06/11/19 - Additional Information Resuscitation Status: Full Code Discharge Diet: As Tolerated Discharge Activity: Activity As Tolerated, Walk Frequently Home Medications: Vits96/Iron Fum/Folic [ Tablet] 1 each PO DAILY 05/15/19 History of Present Illness Patient complains of: c/o mid right abd pain History of Present Illness: NICOLE HERNANDEZ is a 24 year old female Hospital Course Hospital Course: pt given rocephin and pain has resolved Physical Exam - Physical Exam Vital Signs: Temp Pulse Resp BP Pulse Ox 98.2 F 90 19 94/52 L 99 06/11/19 08:27 06/11/19 08:27 06/11/19 08:27 06/11/19 08:27 06/11/19 08:27 Intake & Output 06/10/19 06/11/19 06/12/19 06:59 06:59 06:59 Intake Total 1000 Balance 1000 Weight 91 kg General appearance: PRESENT: no acute distress GI/Abdominal exam: PRESENT: soft - no cva tenderness Result Laboratory Results: 06/10/19 22:00 06/10/19 22:00 06/10/19 06/10/19 06/10/19 20:29 22:00 22:00 WBC 8.9 RBC 3.73 Hgb 11.3 L Hct 33.3 L MCV 89 MCH 30.2 MCHC 33.8 RDW 13.4 Plt Count 303 Seg Neutrophils % 71.2 Lymphocytes % 19.9 Monocytes % 7.1 Eosinophils % 1.6 Basophils % 0.2 Absolute Neutrophils 6.3 Absolute Lymphocytes 1.8 Absolute Monocytes 0.6 Absolute Eosinophils 0.1 Absolute Basophils 0.0 Sodium 135.7 L Potassium 3.9 Chloride 106 Carbon Dioxide 20 L Anion Gap 10 BUN 10 Creatinine 0.68 Est GFR ( Amer) > 60 Est GFR (Non-Af Amer) > 60 Glucose 81 Uric Acid 4.0 Calcium 9.3 Total Bilirubin 0.2 AST 22 Alkaline Phosphatase 155 H Total Protein 6.9 Albumin 3.7 Urine Color YELLOW Urine Appearance SLIGHTLY-CLOUDY Urine pH 6.0 Ur Specific [place] 1.020 Urine Protein 100 H Urine Glucose (UA) 50 H Urine Ketones NEGATIVE Urine Blood LARGE H Urine Nitrite NEGATIVE Ur Leukocyte Esterase NEGATIVE Urine WBC (Auto) 13 Urine RBC (Auto) >182 Plan Discharge Plan: d/c follow up in office Time Spent: Less than 30 Minutes Acute Heart Failure - Is this a Heart Failure Patient?: No
--- NOTE | 2019-06-11 11:02 | PDOC H&P ---
History of Present Illness Admission Date/PCP: 06/10/19 23:38 Ivet Alston MD Patient complains of: Severe right sided abdominal pain History of Present Illness: NICOLE HERNANDEZ is a 24 year old female primigravida at 34w2d that presents from home with complaints of throbbing 9/10 sharp to dull right sided abdominal pain. Pt reports good fm, no vb, no lof and no contractions. Pt denies any rectal pressure or mucoid vaginal discharge concerning for labor. Pain started approximately 3-4hrs prior to patients arrival and has worsened. Though it is noted that according to patients urine, she has an overt UTI, she has no urinary complaints. Pt denies any fevers or chills, nausea or vomiting. Past Medical History Obstetrical History: none - Current IUP @ 34w2d Cardiac Medical History: Denies: Congestive Heart Failure, Coronary Artery Disease, Myocardial Infarction, Hypertension Pulmonary Medical History: Denies: Asthma, Bronchitis, Chronic Obstructive Pulmonary Disease (COPD), Pneumonia, Tuberculosis Neurological Medical History: Denies: Seizures Renal/ Medical History: Denies: End Stage Renal Disease GI Medical History: Denies: Cirrhosis, Gastroesophageal Reflux Disease Musculoskeltal Medical History: Denies: Arthritis Psychiatric Medical History: Denies: Bipolar Disorder, Depression Past Surgical History Past Surgical History: Reports: Other - [place] teeth Social History Smoking Status: Never Smoker Frequency of Alcohol Use: None Hx Recreational Drug Use: No Drugs: None Hx Prescription Drug Abuse: No - Advance Directive Resuscitation Status: Full Code Family History Family History: Reviewed & Not Pertinent Parental Family History Reviewed: Yes - non-contributory Children Family History Reviewed: NA Sibling(s) Family History Reviewed.: NA Medication/Allergy Home Medications: Vits96/Iron Fum/Folic [ Tablet] 1 each PO DAILY 05/15/19 Cephalexin Monohydrate [Keflex 500 mg Capsule] 500 mg PO QID #40 capsule 06/11/19 Cephalexin Monohydrate [Keflex 500 mg Capsule] 500 mg PO QID #40 capsule 06/11/19 Cephalexin Monohydrate [Keflex 500 mg Capsule] 500 mg PO QID #40 capsule 06/11/19 Allergies/Adverse Reactions: No Known Allergies Allergy (Verified 06/10/19 21:47) Review of Systems Constitutional: PRESENT: as per HPI Cardiovascular: PRESENT: as per HPI Respiratory: PRESENT: as per HPI Gastrointestinal: PRESENT: as per HPI, abdominal pain - denies bowel changes or constipation, states had a well formed stool today already Genitourinary: PRESENT: as per HPI Physical Exam - Physical Exam Vital Signs: Temp Pulse Resp BP Pulse Ox 98.2 F 90 19 94/52 L 99 06/11/19 08:27 06/11/19 08:27 06/11/19 08:27 06/11/19 08:27 06/11/19 08:27 Intake & Output 06/10/19 06/11/19 06/12/19 06:59 06:59 06:59 Intake Total 1000 Balance 1000 Weight 91 kg General appearance: PRESENT: no acute distress, well-developed, well-nourished Head exam: PRESENT: atraumatic, normocephalic Eye exam: PRESENT: EOMI Mouth exam: PRESENT: moist Vascular exam: PRESENT: normal capillary refill GI/Abdominal exam: PRESENT: soft, tenderness - right mid abdomen tenderness Musculoskeletal exam: PRESENT: ambulatory, full ROM Neurological exam: PRESENT: alert, altered, oriented to person, oriented to place, oriented to time, oriented to situation, normal gait Psychiatric exam: PRESENT: appropriate affect Skin exam: PRESENT: intact, normal color Result Laboratory Results: 06/10/19 22:00 06/10/19 22:00 06/10/19 06/10/19 06/10/19 20:29 22:00 22:00 WBC 8.9 RBC 3.73 Hgb 11.3 L Hct 33.3 L MCV 89 MCH 30.2 MCHC 33.8 RDW 13.4 Plt Count 303 Seg Neutrophils % 71.2 Lymphocytes % 19.9 Monocytes % 7.1 Eosinophils % 1.6 Basophils % 0.2 Absolute Neutrophils 6.3 Absolute Lymphocytes 1.8 Absolute Monocytes 0.6 Absolute Eosinophils 0.1 Absolute Basophils 0.0 Sodium 135.7 L Potassium 3.9 Chloride 106 Carbon Dioxide 20 L Anion Gap 10 BUN 10 Creatinine 0.68 Est GFR ( Amer) > 60 Est GFR (Non-Af Amer) > 60 Glucose 81 Uric Acid 4.0 Calcium 9.3 Total Bilirubin 0.2 AST 22 Alkaline Phosphatase 155 H Total Protein 6.9 Albumin 3.7 Urine Color YELLOW Urine Appearance SLIGHTLY-CLOUDY Urine pH 6.0 Ur Specific [place] 1.020 Urine Protein 100 H Urine Glucose (UA) 50 H Urine Ketones NEGATIVE Urine Blood LARGE H Urine Nitrite NEGATIVE Ur Leukocyte Esterase NEGATIVE Urine WBC (Auto) 13 Urine RBC (Auto) >182 Assessment & Plan - Diagnosis (1) with 34 completed weeks gestation Is this a current diagnosis for this admission?: Yes (2) Pyelonephritis affecting in third trimester Is this a current diagnosis for this admission?: Yes - Plan Summary Plan Summary: Three hours after receiving rocephin 1g, patient's pain is improving Continue q24hr rocephin until clinically able to discharge Tylenol prn for fever and pain Anticipate discharge home in the am
[2019-06-11] MEDS ORDERED: CEFTRIAXONE 1 GM/D5W RTU 1 GM/50 ML RTUPB IV SCH (22:00)
== END 2019-06-11 11:59 | disposition home or self-care (01) | DRG 833 ==
LOC: LC 20:19 → LR 23:38 → OBSVTOIN 23:44 → 2N 06-11 01:12
PROVIDERS: ADMIT Obstetrics & Gynecology; ATTEND Obstetrics & Gynecology
PROC: 4A0HXCZ Measurement of Products of Conception, Cardiac Rate, External Approach (ICD-10-PCS; principal; 2019-06-10)
DX: O23.03 Infections of kidney in pregnancy, third trimester (principal); Z3A.34 34 weeks gestation of pregnancy
CPT/HCPCS: 36415; 80053; 80307; 81001; 83615; 84550; 85025; 87086; 87088; 87186; G0378; G0379; J0696

== ENCOUNTER 2019-06-15 13:39 | Outpatient (CLI) | payer OTHER ==
[~2019-06-15 13:39] MED LIST changes: -FENTANYL CITRATE INJ/PF 100 MCG/2 ML AMPUL ONE; +FERRIC CARBOXYMALTOSE 750 MG in NORMAL SALINE 250 ML IV PRN; -LIDOCAINE 1%/EPINEPHRINE INJ 20 ML VIAL ONE; -METHYLENE BLUE 50 MG/10 ML AMPULE ONE; -MIDAZOLAM 2 MG/2 ML INJ ONE; -PROPOFOL INJ 200 MG/20 ML VIAL IV ONE
[2019-06-15 13:55] VITALS: BP 117/69
[2019-06-15] MEDS ORDERED: NORMAL SALINE 250 ML IV PRN (14:02)
== END 2019-06-15 15:23 | disposition home or self-care (01) ==
LOC: II 13:39 → 5TH 13:40 → II 15:23
PROVIDERS: ATTEND Student in an Organized Health Care Education/Training Program
PROC: 3E033GC Introduction of Other Therapeutic Substance into Peripheral Vein, Percutaneous Approach (ICD-10-PCS; principal; 2019-06-15)
DX: O99.019 Anemia complicating pregnancy, unspecified trimester (principal)
CPT/HCPCS: 96365; J7050; J1439; 96366

== ENCOUNTER 2019-06-22 13:17 | Outpatient (CLI) | payer OTHER ==
[~2019-06-22 13:17] MED LIST changes: +NORMAL SALINE 250 ML IV PRN
[2019-06-22 13:29] VITALS: BP 102/65
== END 2019-06-22 14:20 | disposition home or self-care (01) ==
LOC: II 13:17 → 5TH 13:19 → II 14:20
PROVIDERS: ATTEND Student in an Organized Health Care Education/Training Program
PROC: 3E043GC Introduction of Other Therapeutic Substance into Central Vein, Percutaneous Approach (ICD-10-PCS; principal; 2019-06-22)
DX: O99.019 Anemia complicating pregnancy, unspecified trimester (principal)
CPT/HCPCS: 96365; J7050; J1439

== ENCOUNTER 2019-06-27 21:57 | Outpatient (CLI) | payer OTHER ==
--- NOTE | 2019-06-27 22:09 | Non Stress Test Report ---
Non Stress Test Datetime Report Generated by CPN: 06/27/2019 22:09 DEMOGRAPHIC EGA NST: 34.2 INDICATION Indication for Study: Ordered by Provider URINE RESULTS Urine Protein, NST: Positive Urine Ketones - NST: Negative Urine Glucose - NST: Positive Urine Blood - NST: Positive MONITORING Monitor Explained: Monitor Explained; Test Explained; Patient Verbalized Understanding Time on Monitor: 06/10/2019 20:33 Time off Monitor: 06/11/2019 00:00 NST Duration: 207 NST INTERVENTIONS NST Interventions: PO Hydration; IV Fluids Physician Notified NST: Dr. Alston BABY A: [id number] BABY A Movement : Present Contraction Frequency : Rare FHR Baseline : 145 Accelerations : 15X15 Decelerations : None Variability : Moderate 6-25bpm NST Review: Meets Criteria for Reactive NST NST Review and Verified By : DORYS Chappell NSPippa Results: Reactive NST REPORT Report Trigger: Send Report
[2019-06-27 22:36] LABS: APPEARANCE,URINE CLEAR; BILIRUBIN,URINE NEGATIVE (NEGATIVE); COLOR,URINE COLORLESS; GLUCOSE, URINE NEGATIVE (NEGATIVE); KETONES,URINE NEGATIVE (NEGATIVE); LEUKOCYTE ESTERASE,URINE SMALL (NEGATIVE); NITRITE,URINE NEGATIVE (NEGATIVE); PROTEIN,URINE NEGATIVE (NEGATIVE); URINE SPECIFIC GRAVITY 1.002; UROBILINOGEN,URINE NEGATIVE mg/dL (<2.0)
[2019-06-27 22:46] LABS: URINE AMPHETAMINES SCREEN NEGATIVE; URINE BARBITURATES SCREEN NEGATIVE; URINE BENZODIAZEPINES SCREEN NEGATIVE; URINE COCAINE SCREEN NEGATIVE; URINE MARIJUANA (THC) SCREEN NEGATIVE; URINE METHADONE SCREEN NEGATIVE; URINE PHENCYCLIDINE SCREEN NEGATIVE
[2019-06-27 23:25] LABS: BACTERIA (WET MOUNT) 3+ BACTERIA SEEN; EPITHELIALS (WET MOUNT) 3+ EPITHELIALS SEEN; RBCS (WET MOUNT) NO RBCS SEEN; T.VAGINALIS (WET MOUNT) NO TRICHOMONAS SEEN; WBCS (WET MOUNT) 2+ WBCS SEEN; YEAST (WET MOUNT) NO YEAST SEEN
[2019-06-28] MEDS ORDERED: HYDROXYZINE PAMOATE 50 MG CAPSULE ONE (03:36)
[2019-06-28] MEDS ORDERED: HYDROXYZINE PAMOATE 50 MG CAPSULE PO ONE (04:00)
[2019-06-28] MEDS ORDERED: RINGERS SOLUTION,LACTATED 1,000 ML IV ONE (04:00)
--- NOTE | 2019-06-28 06:49 | RADIOLOGY REPORT (SQ) ---
EXAM DESCRIPTION: US BIOPHYSICAL PROFILE WITHOUT NON STRESS TEST COMPLETED DATE/TME: 06/28/2019 00:00 CLINICAL HISTORY: 24 years Female, biophysical profile, JOCE 36w6d Comparison: None. TECHNIQUE/LIMITATION: Targeted OB sonogram for requested parameters only. FINDINGS: Single IUP breathing: Two, normal posture and tone: Two, normal movement: Two, normal Amniotic fluid volume: Two, normal, JOCE: 9.0-cm Ultrasound biophysical profile total score: Eight of eight IMPRESSION: Targeted OB sonogram for requested parameters
--- NOTE | 2019-06-28 07:39 | Non Stress Test Report ---
Non Stress Test Datetime Report Generated by CPN: 06/28/2019 07:38 DEMOGRAPHIC EGA NST: 36.5 INDICATION Indication for Study: Ordered by Provider MONITORING Time on Monitor: 06/27/2019 20:05 Time off Monitor: 06/27/2019 22:00 NST Duration: 115 NST INTERVENTIONS Physician Notified NST: Dr. Magana BABY A Movement : Present Contraction Frequency : occ FHR Baseline : 130 Accelerations : 15X15 Decelerations : None Variability : Moderate 6-25bpm NST Review: Meets Criteria for Reactive NST NST Review and Verified By : C. Gentilin, RN NST Results: Reactive NST REPORT Report Trigger: Send Report
== END 2019-06-28 07:40 | disposition home or self-care (01) ==
LOC: LC 21:57
PROVIDERS: ATTEND Student in an Organized Health Care Education/Training Program
PROC: 4A1HXCZ Monitoring of Products of Conception, Cardiac Rate, External Approach (ICD-10-PCS; principal; 2019-06-27)
DX: O46.93 Antepartum hemorrhage, unspecified, third trimester (principal); Z3A.36 36 weeks gestation of pregnancy
CPT/HCPCS: 59025; 76819; 80307; 81001; 87086; 87088; 87210

== ENCOUNTER 2019-07-11 01:09 | Outpatient (CLI) | payer OTHER ==
[2019-07-11 01:52] LABS: APPEARANCE,URINE CLEAR; BILIRUBIN,URINE NEGATIVE (NEGATIVE); COLOR,URINE STRAW; GLUCOSE, URINE NEGATIVE (NEGATIVE); KETONES,URINE NEGATIVE (NEGATIVE); LEUKOCYTE ESTERASE,URINE TRACE (NEGATIVE); NITRITE,URINE NEGATIVE (NEGATIVE); PROTEIN,URINE NEGATIVE (NEGATIVE); URINE SPECIFIC GRAVITY 1.003; UROBILINOGEN,URINE NEGATIVE mg/dL (<2.0)
[2019-07-11 02:12] LABS: URINE AMPHETAMINES SCREEN NEGATIVE; URINE BARBITURATES SCREEN NEGATIVE; URINE BENZODIAZEPINES SCREEN NEGATIVE; URINE COCAINE SCREEN NEGATIVE; URINE MARIJUANA (THC) SCREEN NEGATIVE; URINE METHADONE SCREEN NEGATIVE; URINE PHENCYCLIDINE SCREEN NEGATIVE
== END 2019-07-11 03:02 | disposition home or self-care (01) ==
LOC: LC 01:09
PROVIDERS: ATTEND Obstetrics & Gynecology
PROC: 4A1HXCZ Monitoring of Products of Conception, Cardiac Rate, External Approach (ICD-10-PCS; principal; 2019-07-11)
DX: Z34.83 Encounter for supervision of other normal pregnancy, third trimester (principal)
CPT/HCPCS: 80307; 81005; 84112

== ENCOUNTER 2019-07-17 02:48 | Outpatient (CLI) | payer OTHER ==
[2019-07-17 03:21] LABS: APPEARANCE,URINE CLOUDY; BILIRUBIN,URINE NEGATIVE (NEGATIVE); COLOR,URINE STRAW; GLUCOSE, URINE NEGATIVE (NEGATIVE); KETONES,URINE NEGATIVE (NEGATIVE); LEUKOCYTE ESTERASE,URINE LARGE (NEGATIVE); NITRITE,URINE NEGATIVE (NEGATIVE); PROTEIN,URINE NEGATIVE (NEGATIVE); UROBILINOGEN,URINE NEGATIVE mg/dL (<2.0)
[2019-07-17 03:29] LABS: URINE SPECIFIC GRAVITY 1.008
[2019-07-17 03:38] LABS: URINE AMPHETAMINES SCREEN NEGATIVE; URINE BARBITURATES SCREEN NEGATIVE; URINE BENZODIAZEPINES SCREEN NEGATIVE; URINE COCAINE SCREEN NEGATIVE; URINE MARIJUANA (THC) SCREEN NEGATIVE; URINE METHADONE SCREEN NEGATIVE; URINE PHENCYCLIDINE SCREEN NEGATIVE
[2019-07-17] MEDS ORDERED: HYDROXYZINE PAMOATE 50 MG CAPSULE PO ONE (04:36)
[2019-07-17] MEDS ORDERED: HYDROXYZINE PAMOATE 50 MG CAPSULE ONE (04:37)
[2019-07-17] MEDS ORDERED: DIPH/PERTUSS(ACELL)/TETANUS VAC/PF 0.5 ML SYR (>=10YO) IM PRN (19:53)
[2019-07-17] MEDS ORDERED: ZOLPIDEM TARTRATE 5 MG TABLET PO PRN (19:53)
[2019-07-17] MEDS ORDERED: GLYCERIN/WITCH HAZEL LEAF 1 EACH MED..WIPE TP PRN (19:53)
[2019-07-17] MEDS ORDERED: MAGNESIUM HYDROXIDE SUSP 30 ML UDCUP PO PRN (19:53)
[2019-07-17] MEDS ORDERED: PROMETHAZINE HCL 25 MG SUPP.RECT PR PRN (19:53)
[2019-07-17] MEDS ORDERED: MEASLES,MUMPS&RUBELLA VACC/PF 0.5 ML VIAL SUBCUT PRN (19:53)
[2019-07-17] MEDS ORDERED: DIPHENHYDRAMINE HCL 25 MG CAPSULE PO PRN (19:53)
[2019-07-17] MEDS ORDERED: PROMETHAZINE HCL 25 MG TABLET PO PRN (19:53)
[2019-07-17] MEDS ORDERED: NA PHOS,M-B/NA PHOS,DI-BA (ADULT) 133 ML ENEMA PR PRN (19:53)
[2019-07-17] MEDS ORDERED: BENZOCAINE/MENTHOL AEROSOL SPRAY 56 ML TOP PRN (19:53)
[2019-07-17] MEDS ORDERED: DIBUCAINE 1% OINTMENT 56 GM TP PRN (19:53)
[2019-07-17] MEDS ORDERED: ACETAMINOPHEN WITH CODEINE #3 TABLET PO PRN ×2 (19:53)
[2019-07-17] MEDS ORDERED: ACETAMINOPHEN 650 MG SUPP.RECT PR PRN (19:53)
[2019-07-17] MEDS ORDERED: PSEUDOEPHEDRINE HCL 30 MG TABLET PO PRN (19:53)
[2019-07-17] MEDS ORDERED: PROMETHAZINE HCL INJ 25 MG/1 ML VIAL IV PRN (19:53)
[2019-07-17] MEDS ORDERED: FAMOTIDINE 20 MG TABLET PO SCH (22:00)
[2019-07-17] MEDS ORDERED: IBUPROFEN 800 MG TABLET PO SCH (22:00)
[2019-07-18] MEDS ORDERED: PRENATAL VITAMIN W DHA CAPSULE PO SCH (10:00)
[2019-07-18] MEDS ORDERED: FERROUS SULFATE 325 MG TABLET PO SCH (10:00)
[2019-07-18] MEDS ORDERED: SENNOSIDES/DOCUSATE 8.6-50 MG 1 EACH TABLET PO SCH (10:00)
[2019-07-18] MEDS ORDERED: DOCUSATE SODIUM 100 MG CAPSULE PO SCH (10:00)
== END 2019-07-17 04:41 | disposition home or self-care (01) ==
LOC: LC 02:48
PROVIDERS: ATTEND Obstetrics & Gynecology
PROC: 4A1HXCZ Monitoring of Products of Conception, Cardiac Rate, External Approach (ICD-10-PCS; principal; 2019-07-17)
DX: O47.1 False labor at or after 37 completed weeks of gestation (principal); Z3A.39 39 weeks gestation of pregnancy
CPT/HCPCS: 59025; 80307; 81005; 84112

== ENCOUNTER 2019-07-17 10:46 | Inpatient (IN) | payer OTHER, MEDICAID ==
[2019-07-17] MEDS ORDERED: OXYTOCIN 10 UNIT/ML VIAL ONE (11:32)
[2019-07-17] MEDS ORDERED: MISOPROSTOL 0.2 MG TABLET ONE (11:32)
[2019-07-17] MEDS ORDERED: LIDOCAINE 1% INJ-PF (10 MG/ML) 30 ML SDV ONE (11:32)
[2019-07-17] MEDS ORDERED: OXYTOCIN/NORMAL SALINE 20 UNIT/1,000 ML RTUINJ ONE (11:32)
[2019-07-17] MEDS ORDERED: RINGERS SOLUTION,LACTATED 1,000 ML IV PRN (11:55)
[2019-07-17 12:19] LABS: URINE AMPHETAMINES SCREEN NEGATIVE; URINE BARBITURATES SCREEN NEGATIVE; URINE BENZODIAZEPINES SCREEN NEGATIVE; URINE COCAINE SCREEN NEGATIVE; URINE MARIJUANA (THC) SCREEN NEGATIVE; URINE METHADONE SCREEN NEGATIVE
[2019-07-17 12:36] LABS: URINE PHENCYCLIDINE SCREEN NEGATIVE
[2019-07-17 12:37] LABS: ABSOLUTE LYMPHOCYTES (AUTO) 1.3 10^3/uL (0.5-4.7); ABSOLUTE MONOCYTES (AUTO) 0.5 10^3/uL (0.1-1.4); ABSOLUTE NEUT (AUTO) 4.9 10^3/uL (1.7-8.2); BASOPHILS % (AUTO) 0.4 % (0-2); EOSINOPHILS % (AUTO) 0.7 % (0-6); HEMATOCRIT 35.7 % (36.0-47.0); HEMOGLOBIN 12.2 g/dL (12.0-15.5); LYMPHOCYTES % (AUTO) 19.1 % (13-45); MEAN CORPUSCULAR HEMOGLOBIN 31.3 pg (27.0-33.4); MEAN CORPUSCULAR HGB CONC 34.2 g/dL (32.0-36.0); MEAN CORPUSCULAR VOLUME 92 fl (80-97); MONOCYTES % (AUTO) 7.1 % (3-13); PLATELET COUNT 226 10^3/uL (150-450); RED CELL DISTRIBUTION WIDTH 18.2 % (11.5-14.0); SEGMENTED NEUTROPHILS % (AUTO) 72.7 % (42-78); TOTAL CELLS COUNTED % (AUTO) 100 %; WHITE BLOOD COUNT 6.8 10^3/uL (4.0-10.5)
--- NOTE | 2019-07-17 13:07 | Admission Physical ---
Datetime Report Generated by CPN: 07/17/2019 13:07 CURRENT ADMISSION Chief Complaint: Uterine Contractions Indication for Induction: Not Applicable Admit Impression : Active Labor Admit Plan: Admit to Unit Admit Plan- Other: Poor obstetric hx---SAB x 3 pyelo this preg, on macrobid daily ALLERGIES Medication Allergies: No Medication Allergies: No Known Allergies (07/17/2019) Latex: No Latex Allergies OBSTETRICAL HISTORY EDC: 07/20/2019 00:00 : 5 Para: 0 Term: 0 : 0 SAB: 4 IAB: 0 Ectopic: 1 Livin Gestational Diabetes: No Rh Sensitization: No Incompetent Cervix: No LUISITO: No Infertility: Yes ART Treatment: No Uterine Anomaly: No IUGR: No Hx Previous C/S: No Macrosomia: No Hx Loss/Stillborn: No PIH: No Hx : No Placenta Previa/Abruption: No Depression/PP Depression: No PTL/PROM: No Post Hemorrhage: No Current Procedures: Ultrasound Obstetrical History Comments: G1-G4: SABs all less than 12 weeks (G4 was ectopic with D_C) G5- current SEE RECORDS Alcohol: No Marijuana : No Cocaine: No Other Illicit Drugs: No Cigarettes: Never Smoker. [id number] MEDICAL HISTORY Diabetes: No Blood Transfusion: No Pulmonary Disease (Asthma, TB): No Breast Disease: No Hypertension: No Physical Therapy Aide Surgery: No Heart Disease: No Hosp/Surgery: No Autoimmune Disorder: No Anesthetic Complications: No Kidney Disease: Yes Abnormal Pap Smear: Yes Neuro/Epilepsy: No Psychiatric Disorders: No Other Medical Diseases: No Hepatitis/Liver Disease: No Significant Family History: No Varicosities/Phlebitis: No Trauma/Violence : No Thyroid Dysfunction: Yes Medical History Comments: UTI in this ; synthroid in this , but then was taken off of it; lap for ectopic and D_C; first pap was abnormal but all after were WNL INFECTIOUS HISTORY Gonorrhea: No Genital Herpes: No Chlamydia: No Tuberculosis: No Syphilis: No Hepatitis: No HIV/AIDS Exposure: No Rash or Viral Illness: No HPV: No PHYSICAL EXAM General: Normal HEENT: Deferred Neurologic: Normal Thyroid: Deferred Heart: Normal Lungs: Normal Breast: Deferred Back: Deferred Abdomen: Normal Genitourinary Exam: Normal Extremities: Deferred DTRs: Deferred Pelvic Type: Adequate VAGINAL EXAM Dilatation: 5 Effacement: 80 Station: -1 MEMBRANES Membranes: Intact FETUS A EGA: 39.4 Monitoring: External US FHR- Baseline: 155 Variability: Moderate 6-25bpm Accelerations: 15X15 Decelerations: None FHR Category: Category I Presentation: Vertex Admit Comment: GBS neg PLANS FOR LABOR AND DELIVERY Labor and Delivery: None Pain Management: Epidural Feeding Preference: Breast Benefit of Breast Feed Discussed: Yes Circumcision: N/A INFORMED CONSENT Assignment: Maria R Callaway MD Signature: with User ID: [email or web address] : with User ID: [email or web address]
[2019-07-17] MEDS ORDERED: FENTANYL CITRATE INJ/PF 100 MCG/2 ML AMPUL ONE (15:02)
[2019-07-17] MEDS ORDERED: NA PHOS,M-B/NA PHOS,DI-BA (ADULT) 133 ML ENEMA PR PRN (17:36)
[2019-07-17] MEDS ORDERED: GLYCERIN/WITCH HAZEL LEAF 1 EACH MED..WIPE TP PRN (17:36)
[2019-07-17] MEDS ORDERED: OXYTOCIN/NORMAL SALINE 20 UNIT/1,000 ML RTUINJ IV PRN (17:36)
[2019-07-17] MEDS ORDERED: MAGNESIUM HYDROXIDE SUSP 30 ML UDCUP PO PRN (17:36)
[2019-07-17] MEDS ORDERED: DIBUCAINE 1% OINTMENT 56 GM TP PRN (17:36)
[2019-07-17] MEDS ORDERED: MEASLES,MUMPS&RUBELLA VACC/PF 0.5 ML VIAL SUBCUT PRN (17:36)
[2019-07-17] MEDS ORDERED: BENZOCAINE/MENTHOL AEROSOL SPRAY 56 ML TOP PRN (17:36)
[2019-07-17] MEDS ORDERED: DIPHENHYDRAMINE HCL 25 MG CAPSULE PO PRN (17:36)
[2019-07-17] MEDS ORDERED: DIPH/PERTUSS(ACELL)/TETANUS VAC/PF 0.5 ML SYR (>=10YO) IM PRN (17:36)
[2019-07-17] MEDS ORDERED: ZOLPIDEM TARTRATE 5 MG TABLET PO PRN (17:36)
[2019-07-17] MEDS ORDERED: PROMETHAZINE HCL 25 MG SUPP.RECT PR PRN (17:36)
[2019-07-17] MEDS ORDERED: ACETAMINOPHEN WITH CODEINE #3 TABLET PO PRN ×2 (17:36)
[2019-07-17] MEDS ORDERED: PROMETHAZINE HCL 25 MG TABLET PO PRN (17:36)
[2019-07-17] MEDS ORDERED: PROMETHAZINE HCL INJ 25 MG/1 ML VIAL IV PRN (17:36)
[2019-07-17] MEDS ORDERED: PSEUDOEPHEDRINE HCL 30 MG TABLET PO PRN (17:36)
[2019-07-17] MEDS ORDERED: ACETAMINOPHEN 650 MG SUPP.RECT PR PRN (17:36)
--- NOTE | 2019-07-17 18:54 | Delivery Summary ---
Del Sum A-C Datetime Report Generated by CPN: 07/17/2019 18:54 DELIVERY PERSONNEL DELIVERY PERSONNEL: [id number] Delivery Doctor:: Maria R Callaway MD Labor and Delivery Nurse:: Linsey Carolina RN Nursery Nurse:: Chetna Loya RN Junior Automation Engineer/NEUROLOGY STROKE PHYSICIAN: Nevin Jon, ST MATERNAL INFORMATION Delivery Anesthesia: None Medications After Delivery: Pitocin Drip 20 Units/1000ml NSS; Cytotec 1000mcg Per Rectum/Vagina Estimated Blood Loss (ml): 400 Maternal Complications: None LABOR SUMMARY EDC: 07/20/2019 00:00 No. Babies in Womb: 1 Labor Anesthesia: None LABOR INFORMATION Reason for Induction: Not Applicable Onset of Labor: 07/17/2019 11:06 Complete Dilatation: 07/17/2019 16:13 Oxytocin: Augmentation Group B Beta Strep: negative Antibiotics # of Doses: 0 Steroids Given: None Reason Steroids Not Administered: Not Applicable MEMBRANES Membranes Rupture Method: Artificial Rupture of Membranes: 07/17/2019 13:29 Length of Rupture (hr): 3.83 Amniotic Fluid Color: Clear Amniotic Fluid Amount: Scant Amniotic Fluid Odor: Normal STAGES OF LABOR Stage 1 hr: 5 Stage 1 min: 7 Stage 2 hr: 1 Stage 2 min: 6 Stage 3 hr: 0 Stage 3 min: 5 Total Time in Labor hr: 6 Total Time in Labor min: 18 VAGINAL DELIVERY Episiotomy: None Laceration #1: Perineal Laceration Extension #1: Second Degree Laceration Repair: Yes Laceration Repair Note: 2-0 Chromic CSECTION DELIVERY Primary Indication: N/A Secondary Indication: N/A CSection Incision: N/A BABY A INFORMATION Infant Delivery Date/Time: 07/17/2019 17:19 Method of Delivery: Vaginal Born in Route : No : N/A Forceps: N/A Vacuum Extraction: N/A Shoulder Dystocia : No PRESENTATION/POSITION BABY A Presentation: Cephalic Cephalic Presentation: Vertex Vertex Position: Left Occipital Anterior Breech Presentation: N/A PLACENTA INFORMATION BABY A Placenta Delivery Time : 07/17/2019 17:24 Placenta Method of Delivery: Spontaneous Placenta Status: Delivered SCORES BABY A Heart Rate 1 min: >100 bpm Resp Effort 1 min: Good Cry Reflex Irritability 1 min: Cough or Sneeze or Pulls Away Muscle Tone 1 min: Active Motion Color 1 min: Body Ina, Extremities Blue Resuscitation Effort 1 min: N/A SCORE 1 MIN: 9 Heart Rate 5 min: >100 bpm Resp Effort 5 min: Good Cry Reflex Irritability 5 min: Cough or Sneeze or Pulls Away Muscle Tone 5 min: Active Motion Color 5 min: Body Ina, Extremities Blue SCORE 5 MIN: 9 INFANT INFORMATION BABY A Gestational Age at Delivery: 39.4 Gestational Status: Full Term- 39- 40.6 Weeks Infant Outcome : Liveborn Infant Condition : Stable Sex: Female IDENTIFICATION BABY A Infant Verification Date/Time: 07/17/2019 17:54 ID Band Number: [id number] Mother's Name Verified: Yes Infant RN Verifying : razia Additional Verifying Personnel: Bright LISA RN WEIGHT/LENGTH BABY A Birthweight (gm): 3518 Infant Weight (lb): 7 Weight (oz): 12 Infant Length (in): 20.50 Infant Length (cm): 52.07 CORD INFORMATION BABY A No. Cord Vessels: 3 Nuchal Cord : N/A Cord Blood Taken: Yes-For Eval (Mom's Blood Type - or O+) Suction: None ASSESSMENT BABY A Skin to Skin: Yes Skin to Skin Time (min): 120 SIGNATURES Signature: with User ID: [email or web address] : I was personally available for consultation and serving as supervising physician for the MLP.
[2019-07-17] MEDS: FERROUS SULFATE 325 MG TABLET PO SCH (20:16)
[2019-07-17] MEDS: DOCUSATE SODIUM 100 MG CAPSULE PO SCH (20:16)
[2019-07-17] MEDS: IBUPROFEN 800 MG TABLET PO SCH (21:21)
[2019-07-17] MEDS: FAMOTIDINE 20 MG TABLET PO SCH (21:21)
[2019-07-18] MEDS: IBUPROFEN 800 MG TABLET PO SCH ×3 (06:23→21:39)
[2019-07-18 07:07] LABS: HEMATOCRIT 31.5 % (36.0-47.0); HEMOGLOBIN 10.8 g/dL (12.0-15.5); MEAN CORPUSCULAR HEMOGLOBIN 31.5 pg (27.0-33.4); MEAN CORPUSCULAR HGB CONC 34.2 g/dL (32.0-36.0); MEAN CORPUSCULAR VOLUME 92 fl (80-97); PLATELET COUNT 230 10^3/uL (150-450); RED BLOOD COUNT 3.42 10^6/uL (3.72-5.28); RED CELL DISTRIBUTION WIDTH 18.1 % (11.5-14.0); WHITE BLOOD COUNT 9.8 10^3/uL (4.0-10.5)
--- NOTE | 2019-07-18 10:03 | PDOC PROGRESS REPORT ---
Subjective-OB Progress Note for:: 07/18/19 - PP Day #1, doing well, no complaints, , O+, Rubella Immune Physical Exam (OB) Vital Signs: Temp Pulse Resp BP Pulse Ox 98.3 F 108 H 18 112/69 100 07/18/19 07:50 07/18/19 07:50 07/18/19 07:50 07/18/19 07:50 07/18/19 07:50 - General General Appearance: Appears well, Alert In distress: None - PIH/Pre-Eclampsia DTR's: 2 + Clonus: Negative Headache: Absent Epigastric Pain: No Visual Changes: No - Lochia Lochia Amount: Scant < 10 ml Lochia Color: Rubra/Red - Abdomen Description: Tender, Soft Hernia Present: No Fundal Description: Firm, Midline Fundal Height: u/u - u/2 - Respiratory Respiratory Status: No respiratory distress - Abdominal Inspection: Normal Distension: No distension Tenderness: Nontender - Genitourinary Genitourinary Note: voiding - Extremities Upper extremity: Normal inspection Lower extremities: Normal inspection - Neurological Cognition: Normal Orientation: AAOx4 - Psychological Associated symptoms: Normal affect, Normal mood - Skin Skin Temperature: Warm Skin Moisture: Dry Objective-Diagnostic Laboratory: 07/18/19 06:40 07/17/19 07/17/19 07/18/19 12:12 12:12 06:40 WBC 6.8 9.8 RBC 3.90 3.42 L Hgb 12.2 10.8 L Hct 35.7 L 31.5 L MCV 92 92 MCH 31.3 31.5 MCHC 34.2 34.2 RDW 18.2 H 18.1 H Plt Count 226 230 Seg Neutrophils % 72.7 Blood Type O POSITIVE Antibody Screen NEGATIVE Assessment and Plan(PN) - Assessment and Plan (1) (normal spontaneous vaginal delivery) Is this a current diagnosis for this admission?: Yes (2) Normal course Is this a current diagnosis for this admission?: Yes - Time Spent with Patient Time with patient: Less than 15 minutes Medications reviewed and adjusted accordingly: Yes - Disposition Anticipated Discharge: Home Within: within 24 hours
[2019-07-18] MEDS: SENNOSIDES/DOCUSATE 8.6-50 MG 1 EACH TABLET PO SCH (10:23)
[2019-07-18] MEDS: FAMOTIDINE 20 MG TABLET PO SCH ×2 (10:23→21:39)
[2019-07-18] MEDS: PRENATAL VITAMIN W DHA CAPSULE PO SCH (10:23)
[2019-07-18] MEDS: DOCUSATE SODIUM 100 MG CAPSULE PO SCH ×2 (10:23→17:11)
[2019-07-18] MEDS: FERROUS SULFATE 325 MG TABLET PO SCH ×2 (10:23→17:11)
[2019-07-19] MEDS: IBUPROFEN 800 MG TABLET PO SCH ×2 (05:09→14:45)
[2019-07-19 07:35] VITALS: BP 109/53
[2019-07-19] MEDS: PRENATAL VITAMIN W DHA CAPSULE PO SCH (09:55)
[2019-07-19] MEDS: SENNOSIDES/DOCUSATE 8.6-50 MG 1 EACH TABLET PO SCH (09:56)
[2019-07-19] MEDS: FERROUS SULFATE 325 MG TABLET PO SCH (09:56)
[2019-07-19] MEDS: FAMOTIDINE 20 MG TABLET PO SCH (09:56)
[2019-07-19] MEDS: DOCUSATE SODIUM 100 MG CAPSULE PO SCH (09:56)
--- NOTE | 2019-07-19 12:43 | PDOC DISCHARGE SUMMARY ---
Final Diagnosis Discharge Date: 07/19/19 - Final Diagnosis (1) Anemia due to blood loss, acute Is this a current diagnosis for this admission?: Yes (2) (normal spontaneous vaginal delivery) Is this a current diagnosis for this admission?: Yes (3) Normal course Is this a current diagnosis for this admission?: Yes (4) Perineal laceration during delivery, delivered Is this a current diagnosis for this admission?: Yes Discharge Data - Discharge Medication Prescriptions: Ibuprofen [Motrin 800 mg Tablet] 800 mg PO Q8HP PRN #30 tablet PRN Reason: Abdominal Cramping Docusate Sodium [Colace 100 mg Capsule] 100 mg PO BID #60 capsule Ferrous Sulfate [Feosol 325 mg Tablet] 325 mg PO BID #60 tablet Home Medications: Vits96/Iron Fum/Folic [ Tablet] 1 each PO DAILY 05/15/19 Docusate Sodium [Colace 100 mg Capsule] 100 mg PO BID #60 capsule 07/19/19 Ferrous Sulfate [Feosol 325 mg Tablet] 325 mg PO BID #60 tablet 07/19/19 Ibuprofen [Motrin 800 mg Tablet] 800 mg PO Q8HP PRN #30 tablet 07/19/19 Reason(s) for Admission: Onset of Labor Procedures: Ultrasound Intrapartum Procedure(s): Spontaneous Vaginal Delivery Complication(s): Laceration-Perineal Laceration-Degree: 2nd - Diagnosis Test Laboratory: Temp Pulse Resp BP Pulse Ox 97.5 F 77 18 109/53 L 98 07/19/19 09:00 07/19/19 09:00 07/19/19 09:00 07/19/19 09:00 07/19/19 09:00 07/17/19 07/17/19 07/18/19 11:54 12:12 06:40 RBC 3.90 3.42 L Hgb 12.2 10.8 L Hct 35.7 L 31.5 L Urine Opiates Screen NEGATIVE - Discharge information/Instructions Discharge Activity: Activity As Tolerated, Balance Activity w/Rest, No Lifting Over 10 Pounds, Non-Ambulatory Child, Pelvic Rest, No tub bath, Walk Frequently Discharge Diet: As Tolerated, Regular Disposition: HOME, SELF-CARE Follow up with: [facility] in: 5, Weeks
== END 2019-07-19 16:12 | disposition home or self-care (01) | DRG 806 ==
LOC: LC 10:46 → LR 11:24 → 2S 20:10
PROVIDERS: ADMIT Obstetrics & Gynecology; ATTEND Obstetrics & Gynecology
PROC: 10E0XZZ Delivery of Products of Conception, External Approach (ICD-10-PCS; principal; 2019-07-17)
PROC: 10907ZC Drainage of Amniotic Fluid, Therapeutic from Products of Conception, Via Natural or Artificial Opening (ICD-10-PCS; 2019-07-17)
DX: O70.1 Second degree perineal laceration during delivery (principal); D62 Acute posthemorrhagic anemia; Z37.0 Single live birth; Z3A.39 39 weeks gestation of pregnancy; O26.23 Pregnancy care for patient with recurrent pregnancy loss, third trimester; O99.02 Anemia complicating childbirth
CPT/HCPCS: 36415; 80307; 85025; 85027; 86592; 86850; 86900; 86901; J2590; J3010; J3490

== ENCOUNTER 2019-09-13 22:42 | Emergency (ER) | payer OTHER, MEDICAID ==
[2019-09-13 22:59] VITALS: BP 110/59
--- NOTE | 2019-09-13 23:11 | ER Document Report ---
HPI - HPI Time Seen by Provider: 09/13/19 23:09 Notes: Patient is a 24-year-old female with a history of strep infections who presents complaining of nasal congestion/discharge with postnasal drip and a sore throat that started this morning. She is able to eat and drink without difficulty. D enies drug allergies. She is urinating normally. No other concerns or complaints. Denies any headache, fever, neck pain, chest pain, palpitations, syncope, cough, shortness of breath, wheeze, dyspnea, abdominal pain, nausea/vomiting/diarrhea, urinary retention, dysuria, hematuria, or rash. - ROS Systems Reviewed and Negative: Yes All other systems reviewed and negative - REPRODUCTIVE Reproductive: DENIES: : Past Medical History - Social History Smoking Status: Never Smoker Family History: Reviewed & Not Pertinent - Past Medical History Cardiac Medical History: Denies: Hx Congestive Heart Failure, Hx Coronary Artery Disease, Hx Heart Attack, Hx Hypertension Pulmonary Medical History: Denies: Hx Asthma, Hx Bronchitis, Hx COPD, Hx Pneumonia, Hx Tuberculosis Neurological Medical History: Denies: Hx Cerebrovascular Accident, Hx Seizures, Hx Parkinson's Disease Renal/ Medical History: Reports: Hx Ectopic . Denies: Hx End Stage Renal Disease, Hx Kidney Stones, Hx Peritoneal Dialysis GI Medical History: Denies: Hx Cirrhosis, Hx Gastroesophageal Reflux Disease, Hx Ulcer Musculoskeletal Medical History: Denies Hx Arthritis, Denies Hx Multiple Sclerosis Psychiatric Medical History: Denies: Hx Bipolar Disorder, Hx Depression, Hx Schizophrenia Past Surgical History: Reports: Hx Dilation and Curettage, Hx Genitourinary Surgery - Laparoscopic for ectopic and rule out endometriosis, Hx Oral Surgery, Other - [place] teeth - Immunizations Hx Diphtheria, Pertussis, Tetanus Vaccination: Yes Vertical Provider Document - CONSTITUTIONAL Agree With Documented VS: Yes Notes: PHYSICAL EXAMINATION: GENERAL: Well-appearing, well-nourished and in no acute distress. A&Ox4. Answers questions appropriately. Moves comfortably w/o notable distress HEAD: Atraumatic, normocephalic. EYES: Pupils equal round and reactive to light, extraocular movements intact, sclera anicteric, conjunctiva are normal. ENT: EAC clear b/l. TM's intact b/l without erythema, fluid, or perforation. Nares patent and with clear discharge. oropharynx mild erythema without exudates. + PND noted. No tonsilar hypertrophy with mild erythema no exudate. No palatine shift. Uvula midline. No tongue protrusion. No drooling, hoarseness, or airway compromise. Moist mucous membranes. No sinus tenderness. NECK: Normal range of motion, supple without lymphadenopathy. No rigidity/meningismus. LUNGS: Breath sounds clear to auscultation bilaterally and equal. No wheezes rales or rhonchi. No retractions HEART: Regular rate and rhythm without murmurs, rubs, gallops. ABDOMEN: Soft, nontender, nondistended abdomen. No guarding, no rebound. Normal bowel sounds present. No CVA tenderness bilaterally. No hepatosplenomegaly. NEUROLOGICAL: Normal speech, normal gait. PSYCH: Normal mood, normal affect. SKIN: Warm, Dry, normal turgor, no rashes or lesions noted. - INFECTION CONTROL TRAVEL OUTSIDE OF THE [place] IN LAST 30 DAYS: No Course - Re-evaluation Re-evalutation: 09/13/19 23:43 Patient is an afebrile, well-hydrated, 24-year-old female who presents to the emergency department with an acute URI/pharyngitis, suspect viral. Vitals are acceptable without significant tachycardia, tachypnea, or hypoxia. PE is otherwise unremarkable. Rapid strep neg, culture pending. She is nontoxic- appearing and is tolerating p.o. without difficulty. Lungs are clear to auscultation bilaterally. No further labs or imaging warranted at this time. Low suspicion for any meningitis, sepsis, peritonsillar/pharyngeal abscess, respiratory compromise, Loco's, or other emergent systemic condition at this time. Patient is aware this condition can change from initial presentation and she needs to monitor symptoms closely. Conservative measures otherwise for symptoms. Recheck with your PCM in 2-3 days. Return to the ED with any worsening/concerning symptoms otherwise as reviewed in discharge. Patient is in agreement. - Vital Signs Vital signs: Temp Pulse Resp BP Pulse Ox 98.3 F 86 18 110/59 L 100 09/13/19 22:58 09/13/19 22:58 09/13/19 22:58 09/13/19 22:58 09/13/19 22:58 Discharge - Discharge Clinical Impression: Acute URI Acute pharyngitis Qualifiers: Pharyngitis/tonsillitis etiology: unspecified etiology Qualified Code(s): J02.9 - Acute pharyngitis, unspecified Condition: Stable Disposition: HOME, SELF-CARE Instructions: Sore Throat ([facility]) Additional Instructions: Maintain adequate fluid intake Take meds as directed Salt water gargles, throat sprays, mouthwash rinse, peroxide gargles tylenol/ibuprofen as needed over the counter cold medication as needed for symptoms F/u: with your PCM in 2-3 days for a recheck Consider consult with ENT for ongoing/worsening symptoms Return to the ED with any fever, worsening pain, chest pain, neck pain/stiffness, shortness of breath, cough, drooling, trouble swallowing/breathi ng, abdominal pain, n/v/d, rash, or worsening/concerning symptoms otherwise. Referrals: YFN HART DO [ASSOCIATE] - Follow up as needed
== END 2019-09-13 23:57 | disposition home or self-care (01) ==
LOC: ER 22:42
DX: J06.9 Acute upper respiratory infection, unspecified (principal); R09.81 Nasal congestion; R09.82 Postnasal drip
CPT/HCPCS: 87070; 87880

== ENCOUNTER 2020-01-06 20:36 | Emergency (ER) | payer MEDICAID, OTHER ==
[2020-01-06] MEDS ORDERED: ONDANSETRON 4 MG TAB.RAPDIS PO ONE (21:11)
--- NOTE | 2020-01-06 21:11 | ER Document Report ---
ED Medical Screen (RME) - General Chief Complaint: Flu Symptoms Stated Complaint: FLU LIKE SYMPTOMS, EYES ITCHING Time Seen by Provider: 01/06/20 21:05 Primary Care Provider: BOAZ SHAEVR PA [Primary Care Provider] - Follow up as needed Notes: HPI: 24-year-old female presenting to the emergency department with flulike symptoms that began yesterday. Bilateral eye redness and itching. Slight dry cough. Slight sore throat. 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 She has had nausea with occasional vomiting. I have greeted and performed a rapid initial assessment of this patient. A comprehensive ED assessment and evaluation of the patient, analysis of test results and completion of the medical decision making process will be conducted by additional ED providers PHYSICAL EXAMINATION: GENERAL: Well-appearing, well-nourished and in mild acute distress. HEAD: Atraumatic, normocephalic. EYES: sclera anicteric, conjunctiva are injected bilaterally. ENT: Moist mucous membranes. NECK: Normal range of motion LUNGS: Normal work of breathing, clear to auscultation HEART: 2+ radial pulses bilaterally, regular rate and rhythm ABD: limited by positioning for exam in triage. EXTREMITIES: no pitting or edema. No cyanosis. NEUROLOGICAL: No focal neurological deficits. Moves all extremities spontaneously and on command. PSYCH: Normal mood, normal affect. SKIN: Warm, Dry, normal turgor, no rashes or lesions noted. On discussion with the patient she would like a flu test as she has a 5-month-old at home. Patient is also not sure as to whether she might be TRAVEL OUTSIDE OF THE [place] IN LAST 30 DAYS: No - Related Data Allergies/Adverse Reactions: No Known Allergies Allergy (Verified 07/17/19 03:00) Past Medical History - Social History Frequency of alcohol use: None Drug Abuse: None - Past Medical History Cardiac Medical History: Denies: Hx Congestive Heart Failure, Hx Coronary Artery Disease, Hx Heart Attack, Hx Hypertension Pulmonary Medical History: Denies: Hx Asthma, Hx Bronchitis, Hx COPD, Hx Pneumonia, Hx Tuberculosis Neurological Medical History: Denies: Hx Cerebrovascular Accident, Hx Seizures, Hx Parkinson's Disease Renal/ Medical History: Reports: Hx Ectopic . Denies: Hx End Stage Renal Disease, Hx Kidney Stones, Hx Peritoneal Dialysis GI Medical History: Denies: Hx Cirrhosis, Hx Gastroesophageal Reflux Disease, Hx Ulcer Musculoskeltal Medical History: Denies Hx Arthritis, Denies Hx Multiple Sclerosis Psychiatric Medical History: Denies: Hx Bipolar Disorder, Hx Depression, Hx Schizophrenia Past Surgical History: Reports: Hx Dilation and Curettage, Hx Genitourinary Surgery - Laparoscopic for ectopic and rule out endometriosis, Hx Oral Surgery, Other - [place] teeth - Immunizations Hx Diphtheria, Pertussis, Tetanus Vaccination: Yes Physical Exam - Vital signs Vitals: Temp Pulse Resp BP Pulse Ox 98.3 F 90 20 118/68 100 01/06/20 20:41 01/06/20 20:41 01/06/20 20:41 01/06/20 20:41 01/06/20 20:41 Course - Vital Signs Vital signs: Temp Pulse Resp BP Pulse Ox 98.3 F 90 20 118/68 100 01/06/20 20:41 01/06/20 20:41 01/06/20 20:41 01/06/20 20:41 01/06/20 20:41 Doctor's Discharge - Discharge Referrals: BOAZ SHAVER PA [Primary Care Provider] - Follow up as needed
[2020-01-06 21:52] LABS: A TYPE INFLUENZA AG NEGATIVE (NEGATIVE); B INFLUENZA AG NEGATIVE (NEGATIVE)
[2020-01-06] MEDS ORDERED: ONDANSETRON ODT 4 MG TAB (6 TAB/ER DISP) PO PRN (23:34)
--- NOTE | 2020-01-06 23:41 | ER Document Report ---
HPI - HPI Time Seen by Provider: 01/06/20 21:05 Pain Level: Denies Context: Patient is a 24-year-old female that comes to the emergency department for chief complaint of almost 2 days of sick symptoms including congestion, sneezing, cough, mild sore throat, and chills. She also states that she has itchy watery eyes which are starting to turn red. She has been exposed to 3 sick people including 1 who tested positive for influenza A. She is not vaccinated for influenza. LMP last month. Patient also reports that today she started getting very nauseated but she denies vomiting or abdominal pain. She denies any daily medications or medical history otherwise. - CONSTITUTIONAL Constitutional: REPORTS: Chills. DENIES: Fever - REPRODUCTIVE Reproductive: DENIES: : Past Medical History - General Information source: Patient - Social History Smoking Status: Never Smoker Frequency of alcohol use: None Drug Abuse: None Lives with: Family Family History: Reviewed & Not Pertinent Patient has suicidal ideation: No Patient has homicidal ideation: No - Past Medical History Cardiac Medical History: Denies: Hx Congestive Heart Failure, Hx Coronary Artery Disease, Hx Heart Attack, Hx Hypertension Pulmonary Medical History: Denies: Hx Asthma, Hx Bronchitis, Hx COPD, Hx Pneumonia, Hx Tuberculosis Neurological Medical History: Denies: Hx Cerebrovascular Accident, Hx Seizures, Hx Parkinson's Disease Renal/ Medical History: Reports: Hx Ectopic . Denies: Hx End Stage Renal Disease, Hx Kidney Stones, Hx Peritoneal Dialysis GI Medical History: Denies: Hx Cirrhosis, Hx Gastroesophageal Reflux Disease, Hx Ulcer Musculoskeletal Medical History: Denies Hx Arthritis, Denies Hx Multiple Sclerosis Psychiatric Medical History: Denies: Hx Bipolar Disorder, Hx Depression, Hx Schizophrenia Past Surgical History: Reports: Hx Dilation and Curettage, Hx Genitourinary Surgery - Laparoscopic for ectopic and rule out endometriosis, Hx Oral Surgery, Other - [place] teeth - Immunizations Hx Diphtheria, Pertussis, Tetanus Vaccination: Yes Vertical Provider Document - CONSTITUTIONAL General Appearance: WD/WN, No Apparent Distress - INFECTION CONTROL TRAVEL OUTSIDE OF THE [place] IN LAST 30 DAYS: No - HEENT HEENT: Atraumatic, Normocephalic. negative: Normal ENT Exam - Sinus congestion, nontender sinuses, unremarkable oropharyngeal exam, unremarkable ears. Patient does have injected conjunctive a bilaterally which is mild, no discharge, normal pupils, normal EOMs, normal eyelids. - NECK Neck: Normal Inspection - RESPIRATORY Respiratory: Breath Sounds Normal, No Respiratory Distress. negative: Wheezing - Clear lungs, no cough, wheezing, or concerning findings noted - CARDIOVASCULAR Cardiovascular: Regular Rate, Regular Rhythm - GI/ABDOMEN Gastrointestinal: Abdomen Soft, Abdomen Non-Tender - BACK Back: Normal Inspection - MUSCULOSKELETAL/EXTREMETIES Musculoskeletal/Extremeties: MAEW, FROM, Non-Tender - NEURO Level of Consciousness: Awake, Alert, Appropriate Motor/Sensory: No Motor Deficit, No Sensory Deficit - DERM Integumentary: Warm, Dry, No Rash Course - Re-evaluation Re-evalutation: Influenza negative, is negative, vitals unremarkable, patient with sinus congestion, what appears to be mild conjunctivitis, very unremarkable physical exam otherwise. I suspect a viral illness, she was to be treated for conjunctivitis, discussed symptom management. Patient has no abdominal tenderness, states she feels good after the Zofran, she was provided with Zofran at home. Discussed expectations, follow-up, and return precautions. Patient well-appearing and stable at time of discharge. - Vital Signs Vital signs: Temp Pulse Resp BP Pulse Ox 98.3 F 90 20 118/68 100 01/06/20 20:41 01/06/20 20:41 01/06/20 20:41 01/06/20 20:41 01/06/20 20:41 Discharge - Discharge Clinical Impression: Nausea, Upper respiratory infection Condition: Stable Disposition: HOME, SELF-CARE Additional Instructions: Your influenza test is negative, your test is negative. Your evaluation is consistent with a viral upper respiratory infection. This is very contagious. This should resolve with time. Take Zofran if needed for nausea. You can take 600 mg of ibuprofen and 1000 mg of Tylenol every 6 hours if needed for body aches, chills, pain. I also recommend the Sudafed and nasal spray for your symptoms. You have been prescribed eyedrops for developing conjunctivitis as well. Follow-up with primary care for additional management. Return if you worsen including difficulty breathing, spiking fevers, uncontrolled vomiting, or any other concerning symptoms. Prescriptions: Fluticasone Propionate [Flonase Nasal [place] 50 Mcg/[place] 16 gm] 2 sprays NASL Q12 #1 inhaler Polymyxin B Sulfate/Tmp [Polytrim Oph Soln 10 ml] 1 dose OP ASDIR PRN #1 bottle PRN Reason: Pseudoephedrine HCl [Sudafed 12 Hour] 120 mg PO Q12 PRN #14 tablet.er PRN Reason: Ondansetron [Zofran Odt 4 mg Tablet] 1 - 2 tab PO Q4H PRN #15 tab.rapdis PRN Reason: For Nausea/Vomiting Forms: Return to Work Referrals: BOAZ SHAVER PA [Primary Care Provider] - Follow up as needed
[2020-01-07 00:19] VITALS: BP 111/60
== END 2020-01-07 00:20 | disposition home or self-care (01) ==
LOC: ER 20:36
DX: J06.9 Acute upper respiratory infection, unspecified (principal); R11.0 Nausea; R09.81 Nasal congestion; R05 Cough; J02.9 Acute pharyngitis, unspecified
CPT/HCPCS: 99283; 81025; 87804; S0119

== ENCOUNTER 2020-08-06 09:55 | Emergency (ER) | payer BC, OTHER ==
[2020-08-06] MEDS ORDERED: DIPHENHYDRAMINE HCL 50 MG/ML VIAL IV ONE (11:38)
[2020-08-06] MEDS ORDERED: ONDANSETRON HCL INJ/PF 4 MG/2 ML SDV IV ONE (11:38)
[2020-08-06] MEDS ORDERED: NORMAL SALINE 1000 ML 1,000 ML IV ONE (11:38)
[2020-08-06] MEDS ORDERED: KETOROLAC TROMETHAMINE INJ/PF 30 MG/1 ML SDV IV ONE (11:38)
--- NOTE | 2020-08-06 11:42 | ER Document Report ---
ED Medical Screen (RME) - General Chief Complaint: Headache Stated Complaint: MIGRAINE, Time Seen by Provider: 08/06/20 11:23 Primary Care Provider: BOAZ SHAVER PA [Primary Care Provider] - Follow up as needed TRAVEL OUTSIDE OF THE [place] IN LAST 30 DAYS: No - HPI Notes: 08/06/20 11:38 25-year-old female presents to the emergency room with complaints of a migraine that woke her up around 2:00 this morning, states it is behind her eyes and her neck, she did have one episode of vomiting. Patient does have a history of migraines and headaches, states that this headache does feel similar to her past migraines and headaches. [facility] does not has have a neurological follow-up. Patient states she took Tylenol around 3 AM, which reduced her headache down to 2 out of 5. Patient finished her menstrual cycle on July 31, 2020. NKA. Denies any head trauma or change in level consciousness. I have greeted and performed a rapid initial assessment of this patient. A comprehensive ED assessment and evaluation of the patient, analysis of test results and completion of the medical decision making process will be conducted by additional ED providers. PHYSICAL EXAMINATION: GENERAL: Well-appearing, well-nourished and in no acute distress. HEAD: Atraumatic, normocephalic. EYES: Pupils equal round extraocular movements intact, conjunctiva are normal. NECK: Normal range of motion CV: s1, s2 regular LUNGS: No respiratory distress Musculoskeletal: Normal range of motion NEUROLOGICAL: Normal speech, normal gait. SKIN: Warm, Dry, normal turgor, no rashes or lesions noted. - Related Data Allergies/Adverse Reactions: No Known Allergies Allergy (Verified 07/17/19 03:00) Past Medical History - Social History Chew tobacco use (# tins/day): No Frequency of alcohol use: None Drug Abuse: None - Past Medical History Cardiac Medical History: Denies: Hx Congestive Heart Failure, Hx Coronary Artery Disease, Hx Heart Attack, Hx Hypertension Pulmonary Medical History: Denies: Hx Asthma, Hx Bronchitis, Hx COPD, Hx Pneumonia, Hx Tuberculosis Neurological Medical History: Denies: Hx Cerebrovascular Accident, Hx Seizures, Hx Parkinson's Disease Renal/ Medical History: Reports: Hx Ectopic . Denies: Hx End Stage Renal Disease, Hx Kidney Stones, Hx Peritoneal Dialysis GI Medical History: Denies: Hx Cirrhosis, Hx Gastroesophageal Reflux Disease, Hx Ulcer Musculoskeltal Medical History: Denies Hx Arthritis, Denies Hx Multiple Sclerosis Psychiatric Medical History: Denies: Hx Bipolar Disorder, Hx Depression, Hx Schizophrenia Past Surgical History: Reports: Hx Dilation and Curettage, Hx Genitourinary Surgery - Laparoscopic for ectopic and rule out endometriosis, Hx Oral Surgery, Other - [place] teeth - Immunizations Hx Diphtheria, Pertussis, Tetanus Vaccination: Yes Physical Exam - Vital signs Vitals: Temp Pulse Resp BP Pulse Ox 98.4 F 86 16 119/70 99 08/06/20 10:06 08/06/20 10:06 08/06/20 10:06 08/06/20 10:06 08/06/20 10:06 Course - Vital Signs Vital signs: Temp Pulse Resp BP Pulse Ox 98.4 F 86 16 119/70 99 08/06/20 11:23 08/06/20 10:06 08/06/20 10:06 08/06/20 10:06 08/06/20 10:06 Doctor's Discharge - Discharge Referrals: BOAZ SHAVER PA [Primary Care Provider] - Follow up as needed
--- NOTE | 2020-08-06 12:19 | ER Document Report ---
ED Headache - General Chief Complaint: Headache Stated Complaint: MIGRAINE, Time Seen by Provider: 08/06/20 11:23 Primary Care Provider: BOAZ SHAVER PA [Primary Care Provider] - Follow up as needed Notes: CHIEF COMPLAINT: Headache HPI: 25-year-old female presenting to the emergency department complaining of a posterior and anterior headache that began yesterday. Had one episode of nausea vomiting. Slight blurring of vision. No dizziness or difficulty with balance. Patient states that she has had daily headaches since she was discharged from the in 2018. Patient states she is supposed to follow-up with neurology on September 02 where they were going to do CT imaging because she has not had any imaging done to this point. States the distribution of the headache today is similar to her daily headaches but the intensity is worse. ROS: See HPI - all other systems were reviewed and are otherwise negative Constitutional: no fever Eyes: no drainage, no blurred vision ENT: no runny nose, no sore throat Cardiovascular: no chest pain Resp: no SOB, no cough GI: Positive vomiting, no diarrhea, no abdominal pain : no dysuria Integumentary: no rash Allergy: no hives Musculoskeletal: no extremity pain or swelling Neurological: no numbness/tingling, no weakness, positive headache MEDICATIONS: I agree with the patient medications as charted by the RN. ALLERGIES: I agree with the allergies as charted by the RN. PAST MEDICAL HISTORY/PAST SURGICAL HISTORY: Reviewed and agree as charted by RN. SOCIAL HISTORY: Reviewed and agree as charted by RN. FAMILY HISTORY: No significant familial comorbid conditions directly related to patient complaint EXAM: Reviewed vital signs as charted by RN. CONSTITUTIONAL: Alert and oriented and responds appropriately to questions. Well-appearing; well-nourished HEAD: Normocephalic; atraumatic EYES: PERRL; Conjunctivae clear, sclerae non-icteric. No photophobia ENT: normal nose; no rhinorrhea; moist mucous membranes; pharynx without lesions noted, no uvula edema or deviation, no tonsillar hypertrophy, phonation normal NECK: Supple without meningismus; non-tender; no cervical lymphadenopathy, no masses CARD: RRR; no murmurs, no clicks, no rubs, no gallops; symmetric distal pulses RESP: Normal chest excursion without splinting or tachypnea; breath sounds clear and equal bilaterally; no wheezes, no rhonchi, no rales, pulse oximetry 98% on room air not hypoxic ABD/GI: Normal bowel sounds; non-distended; soft, non-tender, no rebound, no guarding; no palpable organomegaly or masses. BACK: The back appears normal and is non-tender to palpation, there is no CVA tenderness EXT: Normal ROM in all joints; non-tender to palpation; no cyanosis, no effusions, no edema SKIN: Normal color for age and race; warm; dry; good turgor; no acute lesions noted NEURO: Moves all extremities equally; Motor and sensory function intact. Face symmetric. Tongue protrudes midline. Extraocular motions intact. Pupils are 2 mm and equally reactive. Normal speech, normal gait. 5 out of 5 strength in both the distal and proximal upper and lower extremities bilaterally. Sensation is grossly intact throughout. Finger to nose testing normal. Pronator drift normal. PSYCH: The patient's mood and manner are appropriate. Grooming and personal hygiene are appropriate. MDM: 25-year-old female with daily headaches for 2 years. Intensity is worse t demetrio. Neurologically intact. Initial orders placed through triage process. Patient drove herself here so we will hold the Benadryl at this time. Will obtain CT imaging of the head to evaluate for mass or other abnormalities she has not had imaging previously with these headaches TRAVEL OUTSIDE OF THE [place] IN LAST 30 DAYS: No - Related Data Allergies/Adverse Reactions: No Known Allergies Allergy (Verified 07/17/19 03:00) Past Medical History - Social History Smoking Status: Never Smoker Chew tobacco use (# tins/day): No Frequency of alcohol use: None Drug Abuse: None Family History: Reviewed & Not Pertinent - Past Medical History Cardiac Medical History: Denies: Hx Congestive Heart Failure, Hx Coronary Artery Disease, Hx Heart Attack, Hx Hypertension Pulmonary Medical History: Denies: Hx Asthma, Hx Bronchitis, Hx COPD, Hx Pneumonia, Hx Tuberculosis Neurological Medical History: Denies: Hx Cerebrovascular Accident, Hx Seizures, Hx Parkinson's Disease Renal/ Medical History: Reports: Hx Ectopic . Denies: Hx End Stage Renal Disease, Hx Kidney Stones, Hx Peritoneal Dialysis GI Medical History: Denies: Hx Cirrhosis, Hx Gastroesophageal Reflux Disease, Hx Ulcer Musculoskeletal Medical History: Denies Hx Arthritis, Denies Hx Multiple Sclerosis Psychiatric Medical History: Denies: Hx Bipolar Disorder, Hx Depression, Hx Schizophrenia Past Surgical History: Reports: Hx Dilation and Curettage, Hx Genitourinary Surgery - Laparoscopic for ectopic and rule out endometriosis, Hx Oral Surgery, Other - [place] teeth - Immunizations Hx Diphtheria, Pertussis, Tetanus Vaccination: Yes Physical Exam - Vital signs Vitals: Temp Pulse Resp BP Pulse Ox 98.4 F 86 16 119/70 99 08/06/20 10:06 08/06/20 10:06 08/06/20 10:06 08/06/20 10:06 08/06/20 10:06 Course - Re-evaluation Re-evalutation: 08/06/20 14:[address] negative, will give copy on disk as patient following up at [place]. will place on zofran/fioricet at home return instructions given - Vital Signs Vital signs: Temp Pulse Resp BP Pulse Ox 98.4 F 86 16 119/70 99 08/06/20 11:23 08/06/20 10:06 08/06/20 10:06 08/06/20 10:06 08/06/20 10:06 Discharge - Discharge Clinical Impression: Headache, migraine Qualifiers: Migraine type: unspecified Status migrainosus presence: without status migrainosus Intractability: not intractable Qualified Code(s): G43.909 - Migraine, unspecified, not intractable, without status migrainosus Condition: Stable Disposition: HOME, SELF-CARE Additional Instructions: Take the Fioricet for headaches. Take Zofran for nausea. [facility] Prescriptions: Butalb/Acetaminophen/Caffeine [Fioricet (50-325-40 mg) Tablet] 1 tab PO Q6HP PRN #15 tab PRN Reason: Ondansetron [Zofran Odt 4 mg Tablet] 1 - 2 tab PO Q4H PRN #15 tab.rapdis PRN Reason: For Nausea/Vomiting Referrals: BOAZ SHAVER PA [Primary Care Provider] - Follow up as needed
--- NOTE | 2020-08-06 13:06 | RADIOLOGY REPORT (SQ) ---
EXAM DESCRIPTION: CT HEAD WITHOUT IMAGES COMPLETED DATE/TIME: 08/06/2020 12:47 pm REASON FOR STUDY: headaches COMPARISON: None. TECHNIQUE: Axial images acquired through the brain without intravenous contrast. Images reviewed wi th bone, brain and subdural windows. Additional sagittal and coronal reconstructions were generated. Images stored on PACS. All CT scanners at this facility use dose modulation, iterative reconstruction, and/or weight based d osing when appropriate to reduce radiation dose to as low as reasonably achievable (ALARA). [facility]: Dose Right [facility]: CareDose [facility]: Dose Right [facility]: Teradose 4D [facility]: [employer] - Recurrence Backoffice RADIATION DOSE: CT Rad equipment meets quality standard of care and radiation dose reduction techniq ues were employed. CTDIvol: 53.2 mGy. DLP: 1017 mGy-cm. mGy. LIMITATIONS: None. FINDINGS: VENTRICLES: Normal size and contour. CEREBRUM: No masses. No hemorrhage. No midline shift. No evidence for acute infarction. Normal gra y/white matter differentiation. No areas of low density in the white matter. CEREBELLUM: No masses. No hemorrhage. No alteration of density. No evidence for acute infarction. EXTRAAXIAL SPACES: No fluid collections. No masses. ORBITS AND GLOBE: No intra- or extraconal masses. Normal contour of globe without masses. CALVARIUM: No fracture. PARANASAL SINUSES: No fluid or mucosal thickening. SOFT TISSUES: No mass or hematoma. OTHER: No other significant finding. IMPRESSION: NORMAL BRAIN CT WITHOUT CONTRAST. EVIDENCE OF ACUTE STROKE: NO. COMMENT: Quality ID # [id number]: Final reports with documentation of one or more dose reduction techniques (e.g., Automated exposure control, adjustment of the mA and/or kV according to patient size, use of iterative reconstruction technique) TECHNICAL DOCUMENTATION: JOB ID: [id number] 2010 [employer]- All Rights Reserved Reading location - IP/workstation name: [email or web address]
[2020-08-06 14:56] VITALS: BP 115/70
== END 2020-08-06 14:56 | disposition home or self-care (01) ==
LOC: ER 09:55
DX: G43.909 Migraine, unspecified, not intractable, without status migrainosus (principal); R11.2 Nausea with vomiting, unspecified; H53.8 Other visual disturbances
CPT/HCPCS: 99285; 96361; 96374; 96375; 70450; J1885; J2405; J7030